=== PATIENT | male | born 1965 | race Caucasian/White ===

== ENCOUNTER 2024-07-06 03:30 | Inpatient (IN) | payer OTHER, SELFPAY ==
[2024-07-05 22:56] VITALS: BP 110/74
--- NOTE | 2024-07-05 23:09 | ED.GENMED ---
History of Present Illness
<JORGE Watts - Last Filed: 07/06/24 05:52>
General
Chief Complaint: Chest Pain
Time Seen by Provider: 07/05/24 23:09
History of Present Illness
History of Present Illness:
Patient is a 59 year old male with a PMH of HTN presenting to the ED with complaints of chest pain x 1 day. Patient states he woke up with chest pain that was consistent throughout the day, but worsened around 900pm when he was at work standing. The
chest pain got worse and he also got dizzy and short of breath. The chest pain was described as sharp and rated a 7/10 on a pain scale. Patient states the pain is better with rest and worse with exertion. The pain does not radiate anywhere and is
located on the left side of the chest. This has never happened before. He also reports he had a URI 2 weeks ago and still has a cough and sore throat. The cough is minimally productive with no blood. Patient denies any palpitations fever abdominal
pain.
Patient has a PMH of HTN HLD DM which is all controlled on medication. He states he went to a cellular biologist 12 years ago because his brother of heart disease and had all normal tests. He chews tobacco and admits to occasional alcohol use.
Review of Systems
<JORGE Watts - Last Filed: 07/06/24 05:52>
Review of Systems
Constitutional: Reports no symptoms
EENT: Reports sore throat
Respiratory: Reports cough
Cardiac: Reports chest pain
ABD/GI: Reports no symptoms
: Reports no symptoms
Neurological: Reports dizzy
Phy Exam
<JORGE Watts - Last Filed: 07/06/24 05:52>
Physical Exam
Physical Exam:
see physical
ENT Exam
ENT Exam: pharynx normal
Cardiovascular Exam
Cardiovascular Exam: no edema, no gallop, no JVD, no murmur and tachycardia
Pulmonary Exam
Pulmonary Exam: lungs clear, no respiratory distress, no rales, chest non tender, no crackles, no rhonchi, no wheezing and decreased breath sounds
Scores
<JORGE Watts - Last Filed: 07/06/24 05:52>
Heart Score for Chest Pain Patients
STEMI patient?: No
History: Moderately Suspicious
ECG: Normal
Age: >45 - <65 years
Risk Factors: >/= 3 Risk Factors or History of CAD
Troponin: >/= 3 x Normal Limit
Heart Score for Chest Pain Patients: 6
Heart Score Risk: 20.3% MACE over next 6 weeks
Course
<Manuel Morales [facility] - Last Filed: 07/06/24 05:52>
Orders/Labs/Results
Orders:
Orders
07/05/24 22:48
ECG [Electrocardiogram (*1)] Urgent
Reason for Study: Chest Pain
07/05/24 22:49
EKG- Treatment ONCE
07/05/24 23:08
Cardiac Monitoring- Treatment ONCE
EKG- Treatment ONCE
IV Insert/Care/Rem.- Treatment PRN
CR Chest - 2 Views Urgent
Comment:
Reason For Exam: respiratory distress
07/05/24 23:38
Complete Blood Count/With Diff Urgent
Comprehensive Metabolic Panel Urgent
Troponin I Urgent
07/06/24 00:27
Aspirin 325 mg PO NOW STA
Heparin 4,000 units IV NOW STA
07/06/24 00:30
Heparin 25434 Units/250 ml 25,000 units in 250 ml IV PER PROTOCOL
Weight to be used for heparin protocol in kilograms (kg):: 104
Protocol:: Cardiac Tx/Acute Coronary
PTT Goal Range to be used:: PTT 73 to 111 seconds
Order type:: Initial
INITIAL Infusion Dose (UNITS/KG/hr) & then follow protocol:: 15 units/kg/hr
Infusion Dose in UNITS/hr & then follow protocol (UNITS/hr):: 1,500
INFUSION RATE in mL/hr & then follow protocol (mL/hr):: 15
PTT less than or equal to 64 seconds:: Increase rate by 200 units/hr (+ 2 mL/hr)
PTT 64.1 to 72.9 seconds:: Increase rate by 100 units/hr (+ 1 mL/hr)
PTT 73 to 111 seconds:: Target Range. No change in rate.
PTT 111.1 to 130.9 seconds:: Decrease rate by 100 units/hr (- 1 mL/hr)
PTT 131 to 199.9 seconds:: HOLD for 1 hr. Then decrease rate by 200 units/hr (- 2 mL/hr)
PTT greater than or equal to 200 seconds:: HOLD for 2 hrs & Notify Provider. Then decrease by 200 units/hr (-
2 mL/hr)
Lab follow-up:: Each change, PTT q6h until 2 consecutive are therapeutic. Then PTT
daily.
07/06/24 00:32
Heparin 08049 Units/250 ml 25,000 units in 250 ml .ROUTE .STK-MED
07/06/24 00:35
Azithromycin 500 mg/250 ml [Zithromax Infusion] 500 mg in 250 ml IV NOW
CefTRIAXone [Rocephin] 1,000 mg IV NOW STA
07/06/24 00:48
NT-proBNP Urgent
PTT Urgent
Comment: Obtain baseline before beginning heparin infusion if not already collected
07/06/24 01:00
Flush (0.9% Sodium Chloride) [Flush (Nss)] See Dose Instructions IV PER PROTOCOL
07/06/24 01:19
B-Hydroxybutyrate Routine
Lactic Acid Routine
Venous Blood Gas Routine
07/06/24 03:01
Troponin I Urgent
07/06/24 03:10
Admit/Transfer Patient As Directed
Co-Sign Provider:
Level of Care: Inpatient admission
Assign to:: ICU
Physician / Group: Hospitalist
Diagnosis: NSTEMI, DKA
Reason for Hospitalization: NSTEMI
Expected length of stay greater than two midnights?: Yes
ELOS- Estimated Length of Stay in days: 2
I certify the patient meets the requirements for IP care: Yes
PRN Pain Medication Management As Directed
May give lesser potent ordered pain med per pt: Yes
preference::
Protocol:: Medication orders for pain may be administered in a
manner that supports deferring to patient preference
when the pt is:
- Requesting an ordered lesser potent pain medication.
Least to most potent pain medications are defined
as: acetaminophen < NSAID < tramadol < opioids
(morphine, oxycodone, hydromorphone).
- Requesting a lesser dose of the same medication IF
ORDERED.
- Requesting a less intrusive route of administration
if both routes are prescribed by the provider (PO <
IV).
07/06/24 03:11
Code Status As Directed
Resuscitation Status: Full Code
Reg Insulin 100 Units/100 ml [Novolin R Insulin Infusion] 100 units in 100 ml IV NOW
07/06/24 03:32
Ipratropium/Albuterol Sulfate [Duoneb] 3 ml INH R Q4HPRN PRN
Reg Insulin 100 Units/100 ml [Novolin R Insulin Infusion] 100 units in 100 ml IV PER PROTOCOL
Currently infusing. Continue current dose and titrate:: Yes
07/06/24 03:32
Echo 2D MMode Color/Doppler Routine
Reason for Study: chest pain
CARDIOLOGY CONSULT Routine
Consulting Provider: Axel Adkins
Was physician already notified: Yes
Reason for consult: NSTEMI
Consult Notification Routine
Specialty to Notify: Hog Sticker
Hog Sticker Consult Routine
Consulting Provider: Leodan Lu
Was physician already notified: No
Reason for consult: DKA
VTE Contraindication Routine
VTE Mechanical Device Contraindication: Medical Contraindication
Pharmocologic Contraindication: Medical Contraindication
Heparin Protocol- PTT Orders As Directed
PTT per Heparin protocol: -Obtain CBC and baseline PTT - if not already collected.
-Obtain PTT 6 hours from start of infusion. Then, every 6 hours until 2 consecutive
PTT's are therapeutic. Then, PTT Daily.
-With each rate change, obtain PTT every 6 hours until 2 consecutive PTT's are
therapeutic. Then, PTT Daily.
Activity As Directed
Activity Level: With Assistance
Bedside Glucose Monitoring As Directed
Frequency: Q1H
INT (Intravenous Needle Therapy) As Directed
Comment: maintain peripheral IV access
Intake/ Output As Directed
Frequency: Per unit guidelines
Notify MD As Directed
Notify physician if: PTT is greater than or equal to 200.
Vital Signs As Directed
Frequency: q4h
Weight As Directed
Frequency: Daily
O2 Therapy [RESP] Routine
Nasal Cannula Liter Flow: 2 LPM
Titrate/Wean O2 to maintain O2 sat greater than (%): 90
Special Instructions: 2 liters/minute as needed for pulse oximetry less than 90%
Pulse Ox/spot Check [RESP] Routine
Quantity: 1
Special Instructions: on admission and then every shift if on oxygen
07/06/24 04:00
KCl 20 Meq/D5.45%Sodchl 1000ML [D5/0.45%NSS with KCL 20 MEQ] 20 meq in 1,000 ml IV 75 mls/hr
07/06/24 04:09
Basic Metabolic Panel Q4H
Cardiovascular Evaluation IN AM
Complete Blood Count/No Diff IN AM
Glycohemoglobin (HgbA1c) IN AM
Procalcitonin IN AM
PCT Algorithmm Indication: Respiratory
Troponin I Q6H
Comment: at admit & Q3H for 3 total including ED draws, obtain ECG with each level
07/06/24 06:00
Electrocardiogram (*1) Q6H
Reason for Study: Chest Pain
Comment: at admission and Q3H for total of 3, to be done with each troponin
NPO
Allow oral meds: Yes
Allow clear liquids: Sips of Clears
07/06/24 08:00
Aspirin Chewable [Low Strength Aspirin] 81 mg PO DAILY
Famotidine [Pepcid] 20 mg PO DAILY
Pantoprazole [Protonix] 40 mg PO DAILY
07/06/24 10:00
Basic Metabolic Panel Q4H
07/06/24 12:00
Electrocardiogram (*1) Q6H
Reason for Study: Chest Pain
Comment: at admission and Q3H for total of 3, to be done with each troponin
Troponin I Q6H
Comment: at admit & Q3H for 3 total including ED draws, obtain ECG with each level
07/06/24 14:00
Basic Metabolic Panel Q4H
07/06/24 18:00
Basic Metabolic Panel Q4H
Atorvastatin [Lipitor] 80 mg PO QPM
07/07/24 00:00
Azithromycin 500 mg/250 ml [Zithromax Infusion] 500 mg in 250 ml IV Q24H
CefTRIAXone [Rocephin] 1,000 mg IV Q24H
07/08/24 06:00
Complete Blood Count/No Diff Q2D
Comment: notify provider: Platelet count < 130,000 or decrease by 50% from baseline
07/10/24 06:00
Complete Blood Count/No Diff Q2D
Comment: notify provider: Platelet count < 130,000 or decrease by 50% from baseline
07/12/24 06:00
Complete Blood Count/No Diff Q2D
Comment: notify provider: Platelet count < 130,000 or decrease by 50% from baseline
07/14/24 06:00
Complete Blood Count/No Diff Q2D
Comment: notify provider: Platelet count < 130,000 or decrease by 50% from baseline
07/16/24 06:00
Complete Blood Count/No Diff Q2D
Comment: notify provider: Platelet count < 130,000 or decrease by 50% from baseline
07/18/24 06:00
Complete Blood Count/No Diff Q2D
Comment: notify provider: Platelet count < 130,000 or decrease by 50% from baseline
07/20/24 06:00
Complete Blood Count/No Diff Q2D
Comment: notify provider: Platelet count < 130,000 or decrease by 50% from baseline
07/22/24 06:00
Complete Blood Count/No Diff Q2D
Comment: notify provider: Platelet count < 130,000 or decrease by 50% from baseline
Abnormal Lab Results
07/05/24 07/06/24 07/06/24
23:38 00:48 01:19
WBC 17.6 H 10^3/uL
(4.8-10.8)
Abs Immat Gran (auto) 0.1 H 10^3/uL
(0-0.05)
Absolute Neuts (auto) 13.8 H 10^3/uL
(1.4-6.5)
Absolute Monos (auto) 1.6 H 10^3/uL
(0.1-0.6)
Neutrophils % 78.6 H %
(42.2-75.2)
Lymphocytes % 11.1 L %
(20.5-51.1)
APTT > 200.0 H* Sec
(23.4-35.0)
VBG pCO2 29 L mmHg
(35-48)
VBG pO2 129 H mmHg
(30-50)
VBG HCO3 15.3 L mmol/L
(22-27)
Carbon Dioxide 12 L* mmol/L
(22-30)
BUN 21 H mg/dl
(9-20)
Glucose 158 H mg/dl
(70-99)
Total Bilirubin 1.6 H mg/dl
(0.2-1.3)
AST 100 H U/L
(17-59)
Troponin I 13.600 H* ng/ml
B-Hydroxybutyrate 4.63 H mmol/L
(0.02-0.27)
07/06/24
03:01
WBC
Abs Immat Gran (auto)
Absolute Neuts (auto)
Absolute Monos (auto)
Neutrophils %
Lymphocytes %
APTT
VBG pCO2
VBG pO2
VBG HCO3
Carbon Dioxide
BUN
Glucose
Total Bilirubin
AST
Troponin I 11.900 H* ng/ml
B-Hydroxybutyrate
07/05/24 23:38
07/05/24 23:38
Vital Signs
Initial and Last Documented VS:
Initial Vital Signs
Temp Pulse Resp BP Pulse Ox
98.4 F 110 26 110/74 96
07/05/24 22:56 07/05/24 22:56 07/05/24 22:56 07/05/24 22:56 07/05/24 22:56
Last Documented Vital Signs
Temp Pulse Resp BP Pulse Ox
98.8 F 91 15 108/73 94
07/06/24 04:36 07/06/24 03:30 07/06/24 03:30 07/06/24 03:00 07/06/24 04:36
<Axel Aguilar, DO - Last Filed: 07/06/24 00:37>
Orders/Labs/Results
Orders:
Orders
07/05/24 22:48
ECG [Electrocardiogram (*1)] Urgent
Reason for Study: Chest Pain
07/05/24 22:49
EKG- Treatment ONCE
07/05/24 23:08
Cardiac Monitoring- Treatment ONCE
EKG- Treatment ONCE
IV Insert/Care/Rem.- Treatment PRN
CR Chest - 2 Views Urgent
Comment:
Reason For Exam: respiratory distress
07/05/24 23:38
Complete Blood Count/With Diff Urgent
Comprehensive Metabolic Panel Urgent
Troponin I Urgent
07/06/24 00:27
Aspirin 325 mg PO NOW STA
Heparin 4,000 units IV NOW STA
07/06/24 00:30
Heparin 70073 Units/250 ml 25,000 units in 250 ml IV PER PROTOCOL
Weight to be used for heparin protocol in kilograms (kg):: 104
Protocol:: Cardiac Tx/Acute Coronary
PTT Goal Range to be used:: PTT 73 to 111 seconds
Order type:: Initial
INITIAL Infusion Dose (UNITS/KG/hr) & then follow protocol:: 15 units/kg/hr
Infusion Dose in UNITS/hr & then follow protocol (UNITS/hr):: 1,500
INFUSION RATE in mL/hr & then follow protocol (mL/hr):: 15
PTT less than or equal to 64 seconds:: Increase rate by 200 units/hr (+ 2 mL/hr)
PTT 64.1 to 72.9 seconds:: Increase rate by 100 units/hr (+ 1 mL/hr)
PTT 73 to 111 seconds:: Target Range. No change in rate.
PTT 111.1 to 130.9 seconds:: Decrease rate by 100 units/hr (- 1 mL/hr)
PTT 131 to 199.9 seconds:: HOLD for 1 hr. Then decrease rate by 200 units/hr (- 2 mL/hr)
PTT greater than or equal to 200 seconds:: HOLD for 2 hrs & Notify Provider. Then decrease by 200 units/hr (-
2 mL/hr)
Lab follow-up:: Each change, PTT q6h until 2 consecutive are therapeutic. Then PTT
daily.
07/06/24 00:32
Heparin 31139 Units/250 ml 25,000 units in 250 ml .ROUTE .STK-MED
07/06/24 00:35
Azithromycin 500 mg/250 ml [Zithromax Infusion] 500 mg in 250 ml IV NOW
CefTRIAXone [Rocephin] 1,000 mg IV NOW STA
07/06/24 00:48
NT-proBNP Urgent
PTT Urgent
Comment: Obtain baseline before beginning heparin infusion if not already collected
07/06/24 01:00
Flush (0.9% Sodium Chloride) [Flush (Nss)] See Dose Instructions IV PER PROTOCOL
07/06/24 01:19
B-Hydroxybutyrate Routine
Lactic Acid Routine
Venous Blood Gas Routine
07/06/24 03:01
Troponin I Urgent
07/06/24 03:10
Admit/Transfer Patient As Directed
Co-Sign Provider:
Level of Care: Inpatient admission
Assign to:: ICU
Physician / Group: Hospitalist
Diagnosis: NSTEMI, DKA
Reason for Hospitalization: NSTEMI
Expected length of stay greater than two midnights?: Yes
ELOS- Estimated Length of Stay in days: 2
I certify the patient meets the requirements for IP care: Yes
PRN Pain Medication Management As Directed
May give lesser potent ordered pain med per pt: Yes
preference::
Protocol:: Medication orders for pain may be administered in a
manner that supports deferring to patient preference
when the pt is:
- Requesting an ordered lesser potent pain medication.
Least to most potent pain medications are defined
as: acetaminophen < NSAID < tramadol < opioids
(morphine, oxycodone, hydromorphone).
- Requesting a lesser dose of the same medication IF
ORDERED.
- Requesting a less intrusive route of administration
if both routes are prescribed by the provider (PO <
IV).
07/06/24 03:11
Code Status As Directed
Resuscitation Status: Full Code
Reg Insulin 100 Units/100 ml [Novolin R Insulin Infusion] 100 units in 100 ml IV NOW
07/06/24 03:32
Ipratropium/Albuterol Sulfate [Duoneb] 3 ml INH R Q4HPRN PRN
Reg Insulin 100 Units/100 ml [Novolin R Insulin Infusion] 100 units in 100 ml IV PER PROTOCOL
Currently infusing. Continue current dose and titrate:: Yes
07/06/24 03:32
Echo 2D MMode Color/Doppler Routine
Reason for Study: chest pain
CARDIOLOGY CONSULT Routine
Consulting Provider: Axel Adkins
Was physician already notified: Yes
Reason for consult: NSTEMI
Consult Notification Routine
Specialty to Notify: Hog Sticker
Hog Sticker Consult Routine
Consulting Provider: Leodan Lu
Was physician already notified: No
Reason for consult: DKA
VTE Contraindication Routine
VTE Mechanical Device Contraindication: Medical Contraindication
Pharmocologic Contraindication: Medical Contraindication
Heparin Protocol- PTT Orders As Directed
PTT per Heparin protocol: -Obtain CBC and baseline PTT - if not already collected.
-Obtain PTT 6 hours from start of infusion. Then, every 6 hours until 2 consecutive
PTT's are therapeutic. Then, PTT Daily.
-With each rate change, obtain PTT every 6 hours until 2 consecutive PTT's are
therapeutic. Then, PTT Daily.
Activity As Directed
Activity Level: With Assistance
Bedside Glucose Monitoring As Directed
Frequency: Q1H
INT (Intravenous Needle Therapy) As Directed
Comment: maintain peripheral IV access
Intake/ Output As Directed
Frequency: Per unit guidelines
Notify MD As Directed
Notify physician if: PTT is greater than or equal to 200.
Vital Signs As Directed
Frequency: q4h
Weight As Directed
Frequency: Daily
O2 Therapy [RESP] Routine
Nasal Cannula Liter Flow: 2 LPM
Titrate/Wean O2 to maintain O2 sat greater than (%): 90
Special Instructions: 2 liters/minute as needed for pulse oximetry less than 90%
Pulse Ox/spot Check [RESP] Routine
Quantity: 1
Special Instructions: on admission and then every shift if on oxygen
07/06/24 04:00
KCl 20 Meq/D5.45%Sodchl 1000ML [D5/0.45%NSS with KCL 20 MEQ] 20 meq in 1,000 ml IV 75 mls/hr
07/06/24 04:09
Basic Metabolic Panel Q4H
Cardiovascular Evaluation IN AM
Complete Blood Count/No Diff IN AM
Glycohemoglobin (HgbA1c) IN AM
Procalcitonin IN AM
PCT Algorithmm Indication: Respiratory
Troponin I Q6H
Comment: at admit & Q3H for 3 total including ED draws, obtain ECG with each level
07/06/24 06:00
Electrocardiogram (*1) Q6H
Reason for Study: Chest Pain
Comment: at admission and Q3H for total of 3, to be done with each troponin
NPO
Allow oral meds: Yes
Allow clear liquids: Sips of Clears
07/06/24 08:00
Aspirin Chewable [Low Strength Aspirin] 81 mg PO DAILY
Famotidine [Pepcid] 20 mg PO DAILY
Pantoprazole [Protonix] 40 mg PO DAILY
07/06/24 10:00
Basic Metabolic Panel Q4H
07/06/24 12:00
Electrocardiogram (*1) Q6H
Reason for Study: Chest Pain
Comment: at admission and Q3H for total of 3, to be done with each troponin
Troponin I Q6H
Comment: at admit & Q3H for 3 total including ED draws, obtain ECG with each level
07/06/24 14:00
Basic Metabolic Panel Q4H
07/06/24 18:00
Basic Metabolic Panel Q4H
Atorvastatin [Lipitor] 80 mg PO QPM
07/07/24 00:00
Azithromycin 500 mg/250 ml [Zithromax Infusion] 500 mg in 250 ml IV Q24H
CefTRIAXone [Rocephin] 1,000 mg IV Q24H
07/08/24 06:00
Complete Blood Count/No Diff Q2D
Comment: notify provider: Platelet count < 130,000 or decrease by 50% from baseline
07/10/24 06:00
Complete Blood Count/No Diff Q2D
Comment: notify provider: Platelet count < 130,000 or decrease by 50% from baseline
07/12/24 06:00
Complete Blood Count/No Diff Q2D
Comment: notify provider: Platelet count < 130,000 or decrease by 50% from baseline
07/14/24 06:00
Complete Blood Count/No Diff Q2D
Comment: notify provider: Platelet count < 130,000 or decrease by 50% from baseline
07/16/24 06:00
Complete Blood Count/No Diff Q2D
Comment: notify provider: Platelet count < 130,000 or decrease by 50% from baseline
07/18/24 06:00
Complete Blood Count/No Diff Q2D
Comment: notify provider: Platelet count < 130,000 or decrease by 50% from baseline
07/20/24 06:00
Complete Blood Count/No Diff Q2D
Comment: notify provider: Platelet count < 130,000 or decrease by 50% from baseline
07/22/24 06:00
Complete Blood Count/No Diff Q2D
Comment: notify provider: Platelet count < 130,000 or decrease by 50% from baseline
Abnormal Lab Results
07/05/24 07/06/24 07/06/24
23:38 00:48 01:19
WBC 17.6 H 10^3/uL
(4.8-10.8)
Abs Immat Gran (auto) 0.1 H 10^3/uL
(0-0.05)
Absolute Neuts (auto) 13.8 H 10^3/uL
(1.4-6.5)
Absolute Monos (auto) 1.6 H 10^3/uL
(0.1-0.6)
Neutrophils % 78.6 H %
(42.2-75.2)
Lymphocytes % 11.1 L %
(20.5-51.1)
APTT > 200.0 H* Sec
(23.4-35.0)
VBG pCO2 29 L mmHg
(35-48)
VBG pO2 129 H mmHg
(30-50)
VBG HCO3 15.3 L mmol/L
(22-27)
Carbon Dioxide 12 L* mmol/L
(22-30)
BUN 21 H mg/dl
(9-20)
Glucose 158 H mg/dl
(70-99)
Total Bilirubin 1.6 H mg/dl
(0.2-1.3)
AST 100 H U/L
(17-59)
Troponin I 13.600 H* ng/ml
B-Hydroxybutyrate 4.63 H mmol/L
(0.02-0.27)
07/06/24
03:01
WBC
Abs Immat Gran (auto)
Absolute Neuts (auto)
Absolute Monos (auto)
Neutrophils %
Lymphocytes %
APTT
VBG pCO2
VBG pO2
VBG HCO3
Carbon Dioxide
BUN
Glucose
Total Bilirubin
AST
Troponin I 11.900 H* ng/ml
B-Hydroxybutyrate
07/05/24 23:38
07/05/24 23:38
Vital Signs
Initial and Last Documented VS:
Initial Vital Signs
Temp Pulse Resp BP Pulse Ox
98.4 F 110 26 110/74 96
07/05/24 22:56 07/05/24 22:56 07/05/24 22:56 07/05/24 22:56 07/05/24 22:56
Last Documented Vital Signs
Temp Pulse Resp BP Pulse Ox
98.8 F 91 15 108/73 94
07/06/24 04:36 07/06/24 03:30 07/06/24 03:30 07/06/24 03:00 07/06/24 04:36
<JORGE Watts - Last Filed: 07/06/24 05:52>
MDM/Problems Addressed
Differential Diagnosis Includes:
PNA stable angina, unstable angina, CAD
MDM/Problems Addressed:
order EKG cardiac enzymes and blood work, give meds for pain 12:32 update troponins came back 13.6 give aspirin heparin and work up for PNA
<JORGE Watts - Last Filed: 07/06/24 05:52>
*Critical Care Note
Total Time (30-74mins, 75-104mins- exclusive of procedures): Not Applicable
ED Attending Note
<JORGE aWtts - Last Filed: 07/06/24 05:52>
-
Portions of this chart may have been created with voice recognition software.� Occasional wrong word or��sound alike� substitutions may have occurred due to the inherent limitations of voice recognition software.
<Axel Aguilar DO - Last Filed: 07/06/24 00:37>
ED Attending Note
Patient seen and examined by attending physician: Yes
I performed the substantive portion of visit, reviewed & personally made and approve the management plan that is documented in note by myself or SOL.: Yes
ED Attending Note:
This a pleasant 59-year-old male who has been having intermittent chest pain for the last week. Patient dates that his chest pain is worse with exertion. At rest the pain resolves. Tonight he was getting ready to go to work and felt the chest
pain worse that he had not been experiencing. Patient reports that the pain is located on the left side of his chest and denies radiation. Patient does report some shortness of breath. He states that when the chest pain is at its worst, the
shortness of breath worsens. Tonight he became diaphoretic so he came into the emergency department. Patient was seen in conjunction with the PA student. I have reviewed and agree with the history and treatment plan presented. On my independent
physical exam, patient is awake, alert, and oriented x3, in minimal to no acute distress. Initially he was diaphoretic but that has resolved. Patient reports no chest pain. He does have coarse breath sounds bilaterally.
Vital signs are stable. Patient not hypoxic
Nursing note reviewed. I agree with nursing documentation up to this point in time.
Home Meds and allergies reviewed.
NUMBER AND COMPLEXITY OF PROBLEMS ADDRESSED AT THE ENCOUNTER
� Chronic conditions affecting care: Hypertension, hyperlipidemia, type 2 diabetes
� Acute Exacerbation and/or Progression of Chronic Illness:
� Differential Diagnosis includes: ACS, pneumonia, unstable angina
AMOUNT AND/OR COMPLEXITY OF DATA TO BE REVIEWED AND ANALYZED
I performed an independent evaluation of the following and my interpretation is:
EKG: EKG shows normal sinus rhythm rate of 94 with normal intervals, normal axis. No evidence of acute ischemia. No previous EKGs available.
CT:
X-rays: Possible left retrocardiac pneumonia present.
Ultrasound:
Laboratory Studies: Troponin of 13.600., White blood cell count of 17.6, bicarb of 12, T. bili 1.6
Other:
Review of other/old records: No previous records.
Clinical information was obtained by an independent historian:
Prescriptions/Medications Considered but not given:
Further testing considered but not performed:
RISK OF COMPLICATIONS AND/OR MORBIDITY OR MORTALITY OF PATIENT MANAGEMENT
Social determinants of health affecting care: Good Social Support
Discussion with other providers: Spoke with Dr. Adkins, cardiology. He recommended heparin, aspirin, and admission to the hospital service. Spoke with hospitalist who agrees.
Escalation of care including admission/observation vs risk of discharge considered: Patient to be admitted for further observation to determine the etiology of his chest pain.
CRITICAL CARE NOTE:
Critical care statement: A total of 35 minutes of critical care time was provided for this patient. This time is separate from time utilized to perform the aforementioned documented procedures. Aggregate critical care time includes only time
during which I was engaged in work directly related to the patient's care, as described above, whether at the bedside or elsewhere in the Emergency Department.
Total Time (exclusive of procedures):35
Update:
Discharge Plan
Departure
Patient Disposition: Admit
Date of Disposition: 07/06/24
Time of Disposition: 00:36
Admit to: IVU
Presentation/result/management discussed w/ accepting MD/DO: Hospitalist
Condition: Fair
Discharge Problem:
Non-ST elevated myocardial infarction (non-STEMI), Left-sided pneumonia, Acute coronary syndrome
Interventions
Interventions:
*Risk Screen - Suicide Last Done: 07/05/24 22:56
*Neglect/Abuse Screening Last Done: 07/05/24 22:56
ED- Fall Risk Assessment Last Done: 07/05/24 23:53
*ED COVID-19 Vaccine History Last Done: 07/06/24 03:46
*Nursing Disposition Last Done: 07/06/24 03:32
ED- Cardiac Assessment Last Done: 07/05/24 23:53
ED- Pulmonary Assessment Last Done: 07/05/24 23:53
Discharge Date and Time
Discharge Date/Time: 07/06/24 03:33
[2024-07-05 23:32] VITALS: BP 112/78
[2024-07-05 23:45] LABS: % Basophils 0.6 % (0-2); % Eosinophils 0.1 % (0-6); % Immature Granulocytes 0.4 % (0-0.5); % Lymphocytes 11.1 % (20.5-51.1); % Monocytes 9.2 % (1.7-9.3); % Neutrophils 78.6 % (42.2-75.2); Absolute Basophils 0.1 10^3/uL (0-0.2); Absolute Immature Granulocytes 0.1 10^3/uL (0-0.05); Absolute Monocytes 1.6 10^3/uL (0.1-0.6); Absolute Neutrophils 13.8 10^3/uL (1.4-6.5); Hematocrit 48.3 % (39.0-52.0); Hemoglobin 16.3 g/dL (13.0-18.0); Mean Corp Hgb Conc. 33.7 g/dL (33.0-37.0); Mean Corpuscular Hgb 29.4 pg (27.0-31.0); Mean Corpuscular Volume 87.2 fL (80.0-94.0); Mean Platelet Volume 9.7 fL (7.4-10.4); Nucleated Red Blood Cells % 0 % (-); Platelet Count 292 10^3/uL (130-400); Red Blood Cell Count 5.54 10^6/uL (4.70-6.10); Red Cell Dist. Width 13.2 % (11.5-14.5); White Blood Cell Count 17.6 10^3/uL (4.8-10.8)
[2024-07-05 23:52] VITALS: BMI 29.5
[2024-07-06] VITALS (55 sets, daily range): BP systolic 91–142; BP diastolic 54–90; BMI 29.0
[2024-07-06 00:07] LABS: ALT (SGPT) 39 U/L (0-50); AST (SGOT) 100 U/L (17-59); Albumin 4.4 g/dl (3.5-5.0); Alkaline Phosphatase 101 U/L (38-126); Blood Urea Nitrogen 21 mg/dl (9-20); Calcium 9.4 mg/dl (8.4-10.2); Carbon Dioxide 12 mmol/L (22-30); Chloride 101 mmol/L (98-107); Estimated Creatinine Clearance 70 ml/min; Glucose 158 mg/dl (70-99); Potassium 4.2 mmol/L (3.5-5.1); Sodium 139 mmol/L (135-145); Total Bilirubin 1.6 mg/dl (0.2-1.3); Total Protein 7.4 g/dl (6.3-8.2); eGFR > 60.00
[2024-07-06] MEDS: ASPIRIN 325 MG PO (00:30)
[2024-07-06] MEDS: HEPARIN 4000 UNITS IV (00:32)
--- NOTE | 2024-07-06 00:33 | HPS.HSE ---
Family Physician
-
Family Physician: aVzquez Goodwin
Chief Complaint
-
Cough chest pain and shortness of breath
History of Present Illness
Disease disease 59-year-old male with past medical history significant for diabetes hyperlipidemia and hypertension and GERD presenting to the emergency department with approximately 1 day of chest pain and worsening dyspnea on exertion after
approximately 1 week of a cough.
Patient reported that 1 week ago started having cough and phlegm symptoms. His initially had symptoms first. She had a symptoms improved. However the patient has continued to have nonproductive cough and mild shortness of breath at home. He
denied having any fevers. He was tolerating the symptoms up until Thursday evening. He did not get checked for COVID. Thursday when he went to walk he noticed that he had a left-sided chest pain that he described as sharp 8 out of 10 pain.
It was nagging him. There was no radiation. There was no nausea or vomiting. However at work he found that he could not do anything due to the pain. He said the pain has been essentially persistent although it seems to have waxed and waned but
never completely resolving. He denies any nausea or vomiting. Pain is currently a dull ache and without any radiation. It is not particularly worsened with cough or deep inspiration. He denies any lower extremity swelling or calf tenderness.
On arrival in the Emergency Department he was afebrile, blood pressure was 108/72 oxygen saturation was low 90s on room air. ECG showed a normal sinus rhythm without any ST or T wave changes. Troponin was 13. ECG with a possible left retrocardiac
opacity. CBC notable for white count of 17,000 with hemoglobin of 16 and a normal platelet count. Chemistries notable for a bicarb of 12 and a creatinine of 1.3 with a glucose of 158. AST 100.
Medical History
Past Medical History
Past Medical History: Reports GERD, HTN, Hypercholesterolemia and NIDDM
Past Surgical History: Reports Bowel Resection and Orthopedic (Cervical disc replacement)
Social History
Tobacco: Non-smoker
Alcohol: Occasional
Drug: Former User
Personal:
Living: With Family
Employment: Employed
Family History
Family History: Cancer and Sudden (Brother at a young age)
Allergies / Home Medications
Allergies reflects when Allergies were last updated in [employer].
Home Medications with original date entered in [employer]
Allergy/Medication List:
Allergies
Allergy/AdvReac Type Severity Reaction Status Date / Time
No Known Allergies Allergy Verified 07/05/24 22:59
Losartan 100 mg po daily
Amlodipine 10mg po daily
Atorvastatin 80 mg po daily
Famotidine 20mg po daily
Review of Systems
-
History Source: Patient
Constitutional: Reports No Symptoms
EENT: Reports No Symptoms
Respiratory: Reports Cough
Cardiac: Reports Chest Pain
Abdomen/GI: Reports No Symptoms
: Reports No Symptoms
Musculoskeletal: Reports No Symptoms
Skin: Reports No Symptoms
Neurological: Reports No Symptoms
Endocrine: Reports No Symptoms
Hematologic/Lymphatic: Reports No Symptoms
Psych: Reports No Symptoms
Physical Exam
Vital Signs
Vital Signs
Temp Pulse Resp BP Pulse Ox
98.4 F 80 22 108/72 92
07/05/24 22:56 07/06/24 00:00 07/06/24 00:00 07/06/24 00:00 07/06/24 00:00
Physical Exam
General: Well Developed, Well Nourished and Comfortable
HEENT: NormoCephalic, Anicteric, Moist mucous membranes and Atraumatic
Respiratory: Clear
Cardiac: S1/S2 and Regular Rhythm
Breast: Deferred by me
GI: Soft, Non Tender, Non Distended and Normal Bowel Sounds
Rectal: Deferred by Provider
Genito-urinary: Deferred by me
Musculoskeletal: No Clubbing, No Cyanosis and No Edema
Skin: Warm
Neuro: AO x 3 and Nonfocal/grossly intact
Psych: Calm
Laboratory Results
-
07/05/24 23:38
07/05/24 23:38
Laboratory Results
Total Bilirubin 1.6 mg/dl (0.2-1.3) H 07/05/24 23:38
AST 100 U/L (17-59) H 07/05/24 23:38
ALT 39 U/L (0-50) 07/05/24 23:38
Alkaline Phosphatase 101 U/L (38-126) 07/05/24 23:38
Troponin I 13.600 ng/ml H* 07/05/24 23:38
Data Reviewed
-
Diagnostic Radiology: Image Personally Visualized and interpreted
Medical Tests (Nuc Med, Echo, EKG etc): Image Personally Visualized and interpreted
Lab Data: Labs Reviewed by me
Old Records: Reviewed
Impression/Plan
-
IMPRESSION:
59-year-old male with no prior history of coronary artery disease, well with past medical history of diabetes hypertension and hyperlipidemia presents to the emergency department with approximately 1 day of persistent left-sided chest pain that is
nonradiating and not associated with nausea diaphoresis but in the setting of approximately 1 week of upper respiratory cough like illness without fevers or chills. Slightly hypoxic in the emergency department without any significant infiltrates
but possibly a right lower lobe opacity. Ultimately before found to have a elevated troponin of 13. After ischemia on ECG. He is hemodynamically stable. Chest pain is minimal at this time
PLAN:
1. ACS -patient with non-ST elevation ND. Troponin 13. Risk factors include age diabetes hypertension and hyperlipidemia as well as a family history. Patient had a cardiac evaluation 10 years ago without any abnormality. He had a recent upper
respiratory infection and possibly a pneumonia. Suspect possibly completed ND as his pain was more severe yesterday remained persistent with dyspnea on exertion and that is why he came in.
- admit to telemetry
- aspirin 324, heparin bolus and gtt
- atorvastatin 80
- ntg prn chest pain with ECG
- echo in am
- check bnp and cardiovascular testing.
- npo
- cardiology consultation
2. Pneumonia - Cough, mild hypoxia. No fevers. Leukocytosis to 17. Prior URI. Xray is mostly clear but a RLL opacity can't be fully excluded.
- keep SaO2 >95
- ceftriaxone and azithromycin
- check procalcitonin in am for continuation
- prn nebs
3. Anion gap acidosis - Patient with high anion gap. Glucose normal. Possibly non-hyperglycemic ketoacidosis. bHB elevated. Lactate normal. Mild DKA 2/2 ND or infection. Gluc < 200
- given ND
- iv fluids given in ED.
4. DM II (on metformin, jardiance)
- hold metformin and sgltII inh for now
- insulin sliding scale for now
- dka eval as above
5. HTN
- continue losartan and amlodipine
DVT PPX - on heparin
Code status - full code
[2024-07-06] MEDS: HEPARIN 25000 UNITS/250 ML IV (00:34)
[2024-07-06] MEDS: ZITHROMAX INFUSION 250 IV (00:39)
[2024-07-06] MEDS: ROCEPHIN 1000 MG IV (00:39)
[2024-07-06] MEDS: FLUSH (NSS) 1 FLUSH IV (00:41)
[2024-07-06 03:06] LABS: NT-proBNP 11400 pg/ml
--- NOTE | 2024-07-06 03:09 | DOWNTIME ---
There was a [employer] Emergency Communications Officer Downtime on 07/06/2024 from 0100 to 07/06/2024 at 0300. Downtime documentation of patient's care, including medication administrations, has been reconciled in the electronic record per guidelines. Refer to the
patient's paper chart under the miscellaneous tab to see printed paper medication records and downtime forms.
[2024-07-06 03:18] LABS: Venous Blood Gas B.E. -9.1 mmol/L (-4 to +4); Venous Blood Gas HCO3 15.3 mmol/L (22-27); Venous Blood Gas O2 Sat % 98.5 %; Venous Blood Gas pCO2 29 mmHg (35-48); Venous Blood Gas pH 7.33 (7.32-7.43); Venous Blood Gas pO2 129 mmHg (30-50)
[2024-07-06 03:25] LABS: APTT > 200.0 Sec (23.4-35.0)
[2024-07-06 03:28] LABS: B-Hydroxybutyrate 4.63 mmol/L (0.02-0.27)
[2024-07-06] MEDS: NOVOLIN R INSULIN INFUSION 100 IV (03:40)
[2024-07-06] MEDS: D5/0.45%NSS with KCL 20 MEQ 1000 IV (03:44)
[2024-07-06 03:50] LABS: Glucose - Point of Care 150 mg/dl (70-99)
--- NOTE | 2024-07-06 04:12 | PTCARENOTE ---
Pt Aox3, VSS, NSR on monitor, diaphoretic but denies Chest pain/discomfort at this time. BG 150. Heparin gtt infusing, insulin and D5 1/2NS w/ potassium started. pt skin is intact. labs sent.
[2024-07-06 04:21] LABS: Hematocrit 45.6 % (39.0-52.0); Hemoglobin 15.7 g/dL (13.0-18.0); Mean Corp Hgb Conc. 34.4 g/dL (33.0-37.0); Mean Corpuscular Hgb 29.7 pg (27.0-31.0); Mean Corpuscular Volume 86.2 fL (80.0-94.0); Mean Platelet Volume 9.5 fL (7.4-10.4); Platelet Count 264 10^3/uL (130-400); Red Blood Cell Count 5.29 10^6/uL (4.70-6.10); Red Cell Dist. Width 13.2 % (11.5-14.5); White Blood Cell Count 15.6 10^3/uL (4.8-10.8)
[2024-07-06 04:45] LABS: Procalcitonin 1.92 ng/ml (0.0-0.25)
[2024-07-06 04:46] LABS: Blood Urea Nitrogen 23 mg/dl (9-20); Calcium 8.7 mg/dl (8.4-10.2); Carbon Dioxide 12 mmol/L (22-30); Chloride 103 mmol/L (98-107); Estimated Creatinine Clearance 76 ml/min; Glucose 142 mg/dl (70-99); HDL Cholesterol 53 mg/dl; LDL Cholesterol, Calculated 48 mg/dl; Potassium 4.1 mmol/L (3.5-5.1); Sodium 137 mmol/L (135-145); Total Cholesterol 116 mg/dl (50-199); Triglyceride 79 mg/dl (10-149); Very Low Density Lipoprotein 15 mg/dl (0-30); eGFR > 60.00
[2024-07-06 05:14] LABS: Glucose - Point of Care 130 mg/dl (70-99)
[2024-07-06 06:13] LABS: APTT 61.2 Sec (23.4-35.0)
[2024-07-06 06:14] LABS: COVID-19 Antigen Negative (Negative)
[2024-07-06 06:18] LABS: Glucose - Point of Care 145 mg/dl (70-99)
[2024-07-06 07:28] LABS: Glucose - Point of Care 145 mg/dl (70-99)
--- NOTE | 2024-07-06 07:30 | PTCARENOTE ---
Assumed care of pt at 0715 following shift report. Pt asleep in bed, woken easily to name. present at bedside. Pt denies c/o CP when questioned although reports intermittent non-radiating Lt sided CP. Unable to rate/describe the intermittent
pain. Denies SOB. POx 92-94% on RA while awake. No cough- pt reports 'I could produce some phlegm if I needed to'. Insulin gtt infusing per DKA protocol, Heparin gtt infusing @ increased rate of 1700 units/hr, D51/2NSw/20 meq KCL @ 75ml/hr. Pt
remains NPO per order. Physical assessment completed as documented. Discussed plan of care w/ pt and his , multiple questions answered and education provided. Call [place] remains w/in pt reach and safe environment provided.
--- NOTE | 2024-07-06 07:39 | CON.INTV ---
Consultation
Consultation Request
Date/Time Consultation Requested: 07/06/2024-7 AM
Date/Time Consultation Performed: 07/06/2024-7:30 AM
Requesting Provider: Hospitalist
Performing Provider: Dr. Lu
Reason for Consultation: Chest pain, shortness of breath/critical care management
Medical History
-
Chief Complaint: Shortness of breath
History of Present Illness:
59-year-old male with history of hypertension, hyperlipidemia, type 2 diabetes, GERD and probable obstructive sleep apnea presented with shortness of breath and chest pain-admitted to ICU on a heparin drip for stat cardiology evaluation-rack puller
consulted for critical care management 07/06/2024. The patient currently is chest pain-free and has some mild shortness of breath at rest. He does not have any pleurisy, chest congestion is moderate with some sputum production. He does not
complain of any abdominal pain, reflux, diarrhea, nausea, weakness or swelling
Past Medical History
Past Medical History: None (Hypertension. Hyperlipidemia. Obesity. Type 2 diabetes. Chewing tobacco.)
Social History
Tobacco: Non-smoker
Alcohol: None
Drug: None
Personal:
Living: With Family
Occupational Exposures: No known asbestos exposure
Environmental Exposures: No known tuberculosis exposure
Family History
Family History: Reviewed & Not Pertinent
Allergies / Home Medications
Allergies
Allergy/AdvReac Type Severity Reaction Status Date / Time
No Known Allergies Allergy Verified 07/05/24 22:59
Review of Systems
-
Unable to Obtain full review of systems at this time due to: Other (Per HPI)
Vitals / Labs / Diagnostic Testing
Vital Signs
Temp Pulse Resp BP Pulse Ox
98.8 F 77 20 109/70 92
07/06/24 04:36 07/06/24 06:00 07/06/24 06:00 07/06/24 06:00 07/06/24 06:00
Lab Data
07/06/24 04:09
Laboratory Results
07/06/24 07/06/24 07/06/24
00:48 05:51 06:30
APTT > 200.0 H* 61.2 H Cancelled
Diagnostic Testing:
Physical Exam
-
Exam:
Well-nourished and well-developed in no apparent distress
HEENT-atraumatic, normocephalic
Neck-supple, no JVD, no bruit
Heart-regular rate and rhythm-no murmurs, rubs or gallops
Chest-clear to auscultation, no wheezes, crackles
Back-no tenderness
Abdomen-soft, nontender, nondistended, no hepatosplenomegaly
Extremities-no cyanosis, clubbing, edema and good peripheral pulses
Integument-intact, no rashes, lesions or ecchymosis
Neurology-alert and oriented, nonfocal motor and sensory exam
Assessment
-
59-year-old male with history of hypertension, hyperlipidemia, type 2 diabetes, GERD and probable obstructive sleep apnea presented with shortness of breath and chest pain-admitted to ICU on a heparin drip for stat cardiology evaluation-rack puller
consulted for acute coronary syndrome/DKA/critical care management 07/06/2024.
Chest pain with elevated troponin and EKG changes
Cardiac catheterization 07/06/2024-pending
Bronchitis versus early pneumonia
Leukocytosis and elevated procalcitonin
Hyperglycemia
DKA with anion gap metabolic acidosis and ketones-anion gap 27
Metabolic acidosis
Conditions present prior to admission:
Hypertension.
Hyperlipidemia.
Obesity.
Type 2 diabetes.
Chewing tobacco.
Plan
Patient admitted to medical intensive care unit
Supplemental oxygen as needed
Noninvasive ventilation if needed
Nebulizers if needed-currently not bronchospastic
Aspiration precautions
Check sputum cultures
Empiric antibiotics for bronchitis versus early community-acquired pneumonia-ceftriaxone and azithromycin
Chest x-ray without obvious infiltrate-has leukocytosis, no temperature, and elevated procalcitonin-somewhat nonspecific
Monitor blood sugar
Insulin drip converted per hospitalist
Monitor anion gap
Consider diabetic nurse practitioner management
Trend troponin
Cardiac catheterization 07/06/2024
Heparin drip
DVT prophylaxis-on heparin drip
Nutrition
Early mobilization
Significant signs and symptoms of obstructive sleep apnea-snores, feels unrefreshed, has daytime somnolence-recommend outpatient sleep apnea workup-reviewed with including associations with untreated sleep apnea
Critical care statement: A total of 50 minutes of critical care time was provided for this patient today. This includes management of unstable vital signs, evaluation of the patient at bedside, reviewing the patient's pertinent medical records
including radiographs, acute coronary syndrome management, microbiology, laboratory evaluations, and discussion with primary team, consultants, pharmacy, nutrition, physical therapy, case management, charge nurse, critical care nursing, and
respiratory therapy.
Diagnostic data:
Chest x-ray 07/05/2024-NAD
Data Reviewed
-
EKG: Report reviewed by me
Radiology: Report reviewed by me
Medical Tests (Nuc Med, Echo etc): Report reviewed by me
Labs: Labs reviewed by me
Old Records: Reviewed
Critical Care Time (in minutes): 50
--- NOTE | 2024-07-06 07:54 | W.PN.HOSP.TC ---
Today's Communication/Plan
-
Follow-up chest x-ray
Echocardiogram
Hemoglobin A1c
Transition off insulin drip
Cardiology consult
Assessment / Plan
Assessment / Plan
Gen-AAOx3, NAD, obese
HEENT-NC, AT, anicteric, clear oral mm
Neck-supple
CV-reg, no M, +S1/S2
Lungs-clear B/L
Abd-soft, NT, ND
Ext-no edema
Musculoskeletal-no cyanosis, clubbing
Skin-warm and dry
Neuro-grossly non-focal
Psych-calm, cooperative
Acute NSTEMI -symptoms resolved. Currently n.p.o. awaiting cardiology input for catheterization. Denies cardiac history. Troponin peaked at 13.6, trending down now. BNP 11,400.
Echocardiogram pending. Initial EKG was normal, repeat EKG shows sinus rhythm, possible septal infarct and anterio-lateral ischemia.
High anion gap metabolic acidosis -differential diagnosis includes DKA versus other etiology. Check urinalysis. Glucoses under very good control on low-dose insulin infusion, 1 unit/h. Transition off insulin drip, I am not convinced that DKA is
the sole explanation for the acidemia. Start sodium bicarbonate infusion IV. Start Lantus 12 units daily this morning.
Subacute bronchitis versus community-acquired pneumonia -I favor the former. I see no obvious infiltrate on chest x-ray. Elevated procalcitonin noted but can be nonspecific. Currently on empiric antibiotics for CAP. Awaiting formal chest x-ray
reading and likely will discontinue antibiotics if no infiltrate noted.
DM2 without hyperglycemia -hemoglobin A1c pending. He is on oral agents alone for diabetes management. States most recent A1c was around 7%. Temporarily required insulin therapy when he was first diagnosed with diabetes more than 10 years ago.
Essential hypertension -controlled.
Hyperlipidemia -on atorvastatin 80 mg daily.
Obesity due to excess calories
Full code
updated at the bedside.
Anticipated Discharge: > 48 hours
Subjective/Interval History
-
Date of Service: July 06, 2024
Patient seen and examined. Denies any further chest pain. No shortness of breath.
Objective Data
-
Labs:
Laboratory Results
07/05/24 07/06/24 07/06/24
23:38 00:48 04:09
WBC 17.6 H 15.6 H
Hgb 16.3 15.7
Hct 48.3 45.6
Plt Count 292 264
APTT > 200.0 H*
Sodium 139 137
Potassium 4.2 4.1
Chloride 101 103
Carbon Dioxide 12 L* 12 L*
BUN 21 H 23 H
Creatinine 1.3 1.2
Glucose 158 H 142 H
Calcium 9.4 8.7
Total Bilirubin 1.6 H
AST 100 H
ALT 39
Alkaline Phosphatase 101
07/06/24 07/06/24 07/06/24
05:51 06:30 10:00
WBC
Hgb
Hct
Plt Count
APTT 61.2 H Cancelled
Sodium Pending
Potassium Pending
Chloride Pending
Carbon Dioxide Pending
BUN Pending
Creatinine Pending
Glucose Pending
Calcium Pending
Total Bilirubin
AST
ALT
Alkaline Phosphatase
07/06/24 07/06/24 07/06/24
13:00 14:00 18:00
WBC
Hgb
Hct
Plt Count
APTT Pending
Sodium Pending Pending
Potassium Pending Pending
Chloride Pending Pending
Carbon Dioxide Pending Pending
BUN Pending Pending
Creatinine Pending Pending
Glucose Pending Pending
Calcium Pending Pending
Total Bilirubin
AST
ALT
Alkaline Phosphatase
Vital Signs:
Vital Signs
Temp Pulse Resp BP Pulse Ox
98.9 F 77 20 109/70 94
07/06/24 07:54 07/06/24 06:00 07/06/24 06:00 07/06/24 06:00 07/06/24 07:54
I&O
07/05/24 07/06/24 07/07/24
06:59 06:59 06:59
Intake Total 273 / 364
Output Total 700 / 700
Balance -427 / -336
Review of Systems
-
History Source: Patient
All other systems: Reviewed and negative
--- NOTE | 2024-07-06 08:25 | CON.CAR ---
Consultation
Consultation Request
Date/Time Consultation Requested: 07/06/2024; 03:32
Date/Time Consultation Performed: 07/06/2024; 08:30
Requesting Provider: Dea Bolanos M.D.
Performing Provider: Mario Sandoval D.O.
Reason for Consultation: Acute coronary syndrome.
Medical History
-
Chief Complaint: Chest pain.
History of Present Illness:
59 y/o male with PMHx most notable for NIDDM2, HTN, HLD and GERD admitted with chest pain and worsening PHIPPS.
The patient reports one week of chest congestion/cough.
On the day prior to admission, the patient experienced 8/10 left sided chest pain without radiation, nausea/vomiting and was non-pleuritic. It decreased to a dull ache at the time of admission.
EKG showed NSR without ischemic changes. Initial troponin was 13.6. The patient was given aspirin and heparin .
CXR shows possible retrocardiac opacity and leukocytosis was present. The patient was started on ceftriaxone and azithromycin for complicated CAP. SARS-CoV-2 negative.
The patient does have a significant anion gapped metabolic acidosis (HCO3 = 12, anion gap = 26). Beta Hydroxybutyrate is elevated at 4.63. Glucose = 130-150's.
Overnight, the patient has done well and remained hemodynamically stable.
WBC has fallen from 17.6 to 15.6. Procalcitonin is elevated at 1.92.
Troponin is trending down (10.3 <-- 11.9).
Repeat EKG this morning shows new anteroseptal Q waves, a significant change from admission.
The patient is currently chest pain free.
Past Medical History
Past Medical History: HTN, Hypercholesterolemia and NIDDM
Social History
Tobacco: Other (Uses smokeless tobacco.)
Alcohol: None
Drug: None
Personal:
Living: With Family
Family History
Family History: Reviewed & Not Pertinent
Allergies / Home Medications
Allergy/AdvReac Type Severity Reaction Status Date / Time
No Known Allergies Allergy Verified 07/05/24 22:59
Review of Systems
-
History Source: Patient
Constitutional: No Symptoms and Not Done
EENT: No Symptoms
Respiratory: Cough and Trouble Breathing
Cardiac: Chest Pain
Abdomen/GI: No Symptoms
: No Symptoms
Musculoskeletal: No Symptoms
Skin: No Symptoms
Neurological: No Symptoms
Endocrine: No Symptoms
Hematologic/Lymphatic: No Symptoms
Physical Exam
Vital Signs
Temp Pulse Resp BP Pulse Ox
37.2 C 77 20 109/70 94
07/06/24 07:54 07/06/24 06:00 07/06/24 06:00 07/06/24 06:00 07/06/24 07:54
Lab Results
07/06/24 04:09
Troponin I 10.300 ng/ml H* 07/06/24 04:09
Ctl-C-Skfnbfnneyp Pept 47309 pg/ml 07/06/24 00:48
Physical Exam
General: Well Nourished, No Apparent Distress, Comfortable and Good Appetite
HEENT: Normocephalic, Moist Mucous Membranes and Atraumatic
Respiratory: Clear
Cardiac: S1/S2 and Regular Rhythm
Breast: Deferred by me
GI: Soft, Non Tender, Non Distended and Normal Bowel Sounds
Rectal: Deferred by Provider
Musculoskeletal: No Clubbing, No Cyanosis and No Edema
Skin: Warm and Dry
Neuro: AO x 3
Hematologic/Lymphatic: No Lymphadenopathy
Psych: Calm
Impression / Plan
-
Impression/Plan: 59 y/o male with HTN, HLD and NIDDM admitted with one week of cough followed by a day of chest pain, abnormal troponin and dynamic EKG changes and DKA.
#Chest pain/abnormal troponin
-Acute, new diagnosis.
-EKG now shows anteroseptal Q waves with a positive troponin.
-DDx includes NSTEMI in evolution, takotsubo, new HFrEF.
-TTE.
-Diagnostic cardiac catheterization for clarification of coronary anatomy.
-Continue heparin and aspirin.
#HTN
-Chronic, stable.
-Adjust medications as indicated.
#HLD
-Chronic, stable.
-Total cholesterol = 116, LDL = 48, HDL = 53, Triglycerides = 79.
-Start high dose, high potency statin (more for anti-inflammatory effect as LDL is already at goal < 55).
#Possible CAP
-Acute.
-Procalcitonin 1.92.
-Continue empiric antibiotics per internal medicine.
#NIDDM/DKA
-Acute.
-HbA1c = 8.6%.
-HCO3 = 12, anion gap = 26.
-Continue insulin gtt until gap is closed.
-DDx for DKA exacerbation is possible NSTEMI vs. infection.
Data Reviewed
-
EKG: Tracing Personally Visualized and interpreted, Report Reviewed by me and Discussed with Physician
Radiology: Image Personally Visualized and interpreted and Report Reviewed by me
Labs: Labs Reviewed by me, Discussed with Physician and Discussed with Patient
[2024-07-06 08:31] LABS: Glucose - Point of Care 120 mg/dl (70-99)
[2024-07-06 08:39] LABS: Glycohemoglobin (HgbA1c) 8.6 % (4.0-5.6)
[2024-07-06] MEDS: LOW STRENGTH ASPIRIN 81 MG PO (08:54)
[2024-07-06] MEDS: PROTONIX 40 MG PO (08:54)
[2024-07-06] MEDS: PEPCID 20 MG PO (08:54)
[2024-07-06] MEDS: SODIUM BICARBONATE 1150 MEQ IV (08:55)
[2024-07-06] MEDS: LANTUS 0.12 UNITS SC (09:08)
[2024-07-06 09:15] LABS: Glucose - Point of Care 115 mg/dl (70-99)
--- NOTE | 2024-07-06 09:56 | PTCARENOTE ---
Report given to 'Artem' in cardiac skilled laborer- notified of 1100 time to stop Insulin gtt. Pt's [id number]. Chief Wellness Officer RNs in room to transport pt. Heparin gtt turned off at 0950 by Chief Wellness Officer RN. Pt w/o changes noted or complaint received prior to
transport. Pt's to Chief Wellness Officer waiting room.
[2024-07-06 10:04] LABS: Glucose - Point of Care 117 mg/dl (70-99)
[2024-07-06 11:26] LABS: ACT-LR - POC 329 Seconds (116-155)
--- NOTE | 2024-07-06 11:26 | ITS.CL.ANGIO ---
Manager Operations - Angioplasty
Angioplasty
Procedure Report:
CARDIAC CATHETERIZATION REPORT
Date of Procedure: 07/06/2024
Referring: Axel Adkins M.D.
INDICATION: Non-ST elevation myocardial infarction.
PROCEDURE:
1. Left heart catheterization.
2. Coronary angiography.
3. Unsuccessful wiring of OM1, leading to the conclusion that this is a chronic total occlusion.
4. Successful PCI of OM 2.
ACCESS:
6 [place] right radial artery.
CATHETERS:
1. 5 [place] JR4.
2. 5 [place] JL 3.5.
3. 6 [place] EBU 3.5 guiding catheter.
HEMODYNAMIC DATA
Weight (kg): 102.1
AO (s/d/x, mmHg): 90/62/74
LV (s/x mmHg): 92/10
LEFT VENTRICULOGRAPHY: Not performed.
CORONARY ANGIOGRAPHY
Dominance: Right.
Left Main: Normal size, bifurcating vessel. There is no coronary artery disease.
LAD: Normal size vessel giving rise to 3 diagonals before wrapping around the apex and supplying the distal inferior septum. There are minor luminal irregularities in the mid vessel with a 40% lesion in the distal LAD.
Ramus: Congenitally absent.
Circumflex: Large size, nondominant vessel giving rise to 3 obtuse marginals. OM1 is a medium size vessel that is chronically totally occluded at its origin. Collaterals to OM1 are supplied by the first diagonal. There is a hazy, 80-90% lesion
in the ostium of OM 2. OM 3 arises low off of the AV groove circumflex and supplies the inferolateral base. There is no coronary artery disease.
RCA: Normal size, dominant vessel. There is a long, 40% lesion in the proximal vessel leading into the mid vessel. There are tandem 70% lesions in the distal RCA by the crux and again spanning the origin of the RPDA. A branch originates from
the origin of the right coronary artery and traverses the RVOT before giving rise to a small interventricular septal.
INTERVENTION(S)
1. Attempted but unsuccessful wiring of the first obtuse marginal out of concern that this was the culprit lesion, confirming that this is a chronic total occlusion.
2. Successful PCI of the hazy, 80-90% ostial OM2 lesion (Medtronic [place] 2.5 x 18 NORMA) with reduction in stenosis to 0%, maintaining LIDIA-3 flow.
Narrative:
The decision was made to proceed with percutaneous coronary intervention. The diagnostic catheter was removed over a wire and a 6Fr EBU 3.5 guiding catheter was advanced to the aortic root and seated in the left main coronary artery. Additional
heparin was given and a Power Turn Flex wire was advanced into the distal second obtuse marginal.
At this time, the prevailing thought was that OM1 was an acute lesion combined with OM 2 and that 2 stent strategy would be required, but hopefully not overlapping. A BMW wire was advanced into the left circumflex and into the origin of OM1, but
would not pass into the distal vessel. A quick cross microcatheter was advanced for support of the BMW, but the wire would still not cross. The BMW wire was withdrawn and a whisper wire was advanced through the quick cross microcatheter. Several
attempts were made using the quick cross microcatheter for support. The whisper wire was able to engage the lesion and passed into the occluded segment, but would not pass beyond into the distal lumen of the OM1. The angulation of OM1 was proving
quite difficult. The quick cross microcatheter was exchanged for a 45 degree super cross microcatheter. With this support, the whisper wire was able to engage more aggressively, but again would not cross into the lumen of the distal OM1. The
whisper wire was withdrawn and a Fielder XT wire was advanced. Again, the wire was able to engage the occluded segment of OM1 but would not pass into the distal lumen of OM1. After numerous attempts, we concluded that OM1 was a SUPERVISOR CUTTING DEPARTMENT and further
attempts at revascularization of this vessel were abandoned. We then turned our attention to the hazy, 80-90% ostial OM2 lesion.
The super cross microcatheter was withdrawn and the BMW wire was advanced into the circumflex and into the distal AV groove vessel for protection and assistance with stent positioning. The 80-90% ostial OM2 lesion was predilated with a 2.0 x 12
semi-compliant balloon to 12 uday. The semi-compliant balloon was removed and a Medtronic [place] 2.5 x 18 drug-eluting stent was advanced. The stent was deployed at 12 atmospheres. The stent balloon was removed. Post PCI angiography showed
mild stenosis immediately after the stent. Nitroglycerin 100 mcg was given intracoronary with resolution of the stenosis, confirming that it was post PCI vessel spasm.
Angiography was performed in orthogonal views, confirming good stent expansion and an excellent angiographic result. The coronary wire was withdrawn and the guide was disengaged from the artery. The catheter was removed over a standard J-wire.
Closure Device: Vascular band.
Radiation (mGy): 1620.84
DAP (cm2.Gy): 128.09
Fluoroscopy time (minutes): 22.6
Sedation time (minutes): 68
CONCLUSIONS
1. Right dominant circulation with a long, 40% lesion in the proximal RCA, tandem 70% lesions in the distal RCA by the crux and again spanning the origin of the RPDA, luminal irregularities in the LAD with a 40% lesion in the distal LAD, a 100%
lesion in the ostium of OM1 status post unsuccessful wiring with wire escalation, confirming chronic total occlusion and a culprit, hazy, 80-90% lesion in the ostium of OM 2, status post successful PCI (Medtronic [place] 2.5 x 18 NORMA) with
reduction in stenosis to 0%, maintaining LIDIA-3 flow.
2. Normal filling pressures (LVEDP = 10 mmHg at 102.1 kg).
RECOMMENDATIONS:
1. Expectant management after cardiac catheterization via right radial approach.
2. Limited weight bearing on the right wrist for one week.
3. Dual antiplatelet therapy with aspirin and ticagrelor for at least 12 months, followed by aspirin indefinitely.
4. Aggressive secondary prevention with high-dose, high potency statin.
5. Echocardiogram ordered and pending.
6. Guideline directed medical therapy as hemodynamics will tolerate.
7. Referral to cardiac rehab.
8. Consider outpatient exercise stress test given residual 70% lesions in right coronary artery.
Copy to: Vazquez Goodwin M.D., Axel Adkins M.D.
Mario Sandoval DO, FACC, FACP
--- NOTE | 2024-07-06 12:00 | CM ---
Patient admitted with NSTEMI and DKA. Patient in procedure. MEt with . 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 They live in 2 level home with 2 steps to enter. There is half bath on key entry operator. UP 13 steps to full bathroom
and bedrooms.
HE does not have any DME. NO history of VNA or SNF.
states her mother may have DME to borrow if needed for patient.
PCP Vazquez Goodwin
Pharmacy: [facility]
CM received consults for ADvanced directive and Cost of Brilanta 90 mg BID. CM to complete today.
PLAN:HOme with family.
[2024-07-06 12:04] LABS: Glucose - Point of Care 138 mg/dl (70-99)
--- NOTE | 2024-07-06 12:15 | PTCARENOTE ---
Pt returned to room from Expeller Worker @ 1150, awake and denying c/o pain or SOB. Pt on RA w/ POx 93-95%. Rt radial TR band in place w/ air in place, site w/o evidence of oozing or ecchymosis. BMP obtained and sent to lab. IVF of D5W w/ HCO3 infusing at
100ml/hr. Education provided to pt and his . Call nyla w/in pt reach.
[2024-07-06 13:20] LABS: Blood Urea Nitrogen 26 mg/dl (9-20); Calcium 8.5 mg/dl (8.4-10.2); Carbon Dioxide 17 mmol/L (22-30); Chloride 101 mmol/L (98-107); Estimated Creatinine Clearance 83 ml/min; Potassium 3.8 mmol/L (3.5-5.1); Sodium 134 mmol/L (135-145); eGFR > 60.00
[2024-07-06 14:00] LABS: Urine Albumin Trace (Neg - Trace); Urine Bilirubin Negative (Negative); Urine Character Clear (Clear); Urine Color Yellow; Urine Glucose 3+ (Negative); Urine Ketone 3+ (Negative); Urine Leukocyte Negative (Negative); Urine Nitrite Negative (Negative); Urine Occult Blood 1+ (Negative); Urine Urobilinogen Negative (Neg - 1+)
[2024-07-06 14:01] LABS: Glucose 123 mg/dl (70-99)
[2024-07-06 14:15] LABS: Urine White Cell 0-2 /HPF (0-5)
[2024-07-06 14:25] LABS: Glucose - Point of Care 130 mg/dl (70-99)
[2024-07-06] MEDS: NOVOLOG FLEXPEN 4 UNITS SC ×2 (14:52→17:04)
[2024-07-06 15:00] LABS: ACT-LR - POC > 397 Seconds (116-155)
--- NOTE | 2024-07-06 16:00 | PTCARENOTE ---
Pt resting quietly. Denies c/o pain or SOB. Remains on RA w/ Pox 92-95%. TR band completely deflated at 1425. Site unchanged. No changes from previous physical assessment findings. remains at bedside.
[2024-07-06] MEDS: SODIUM BICARBONATE 1300 MG PO ×2 (16:39→22:05)
[2024-07-06] MEDS: NOVOLOG FLEXPEN-LOW RESISTANCE 1 UNITS SC (17:04)
[2024-07-06 17:12] LABS: Blood Urea Nitrogen 26 mg/dl (9-20); Calcium 8.5 mg/dl (8.4-10.2); Carbon Dioxide 21 mmol/L (22-30); Chloride 100 mmol/L (98-107); Estimated Creatinine Clearance 76 ml/min; Glucose 181 mg/dl (70-99); Potassium 3.3 mmol/L (3.5-5.1); Sodium 135 mmol/L (135-145); eGFR > 60.00
[2024-07-06] MEDS: LIPITOR 80 MG PO (17:12)
[2024-07-06 17:14] LABS: Glucose - Point of Care 155 mg/dl (70-99)
--- NOTE | 2024-07-06 17:25 | PTCARENOTE ---
Pt OOB to chair, assisted w/ Hygiene. Tolerated increased activity w/o complication or complaint- remains pain free. Tolerating diet. SS Insulin coverage provided as ordered (see MAR).
[2024-07-06] MEDS: KCL 40 MEQ PO (20:33)
[2024-07-06] MEDS: BRILINTA 90 MG PO (20:33)
[2024-07-06 21:04] LABS: Magnesium 2.4 mg/dl (1.6-2.3)
--- NOTE | 2024-07-06 22:00 | PTCARENOTE ---
Patient resting comfortably in bed watching TV.
AAO, no signs of distress, answers all questions appropriately, no neurological deviations.
NSR w/o ectopy noted on bedside monitor, normotensive, normothermic.
IV fluids D/C.
All questions answered.
[2024-07-07] VITALS (15 sets, daily range): BP systolic 102–137; BP diastolic 59–88; BMI 29.1
--- NOTE | 2024-07-07 00:02 | PTCARENOTE ---
No change in Patient assessment.
Cath site remains C/D/I. Pt. sleeping.
--- NOTE | 2024-07-07 03:53 | PTCARENOTE ---
No change in patient assessment
[2024-07-07 06:24] LABS: % Basophils 0.8 % (0-2); % Eosinophils 3.6 % (0-6); % Immature Granulocytes 0.5 % (0-0.5); % Lymphocytes 25.4 % (20.5-51.1); % Monocytes 12.3 % (1.7-9.3); % Neutrophils 57.4 % (42.2-75.2); Absolute Basophils 0.1 10^3/uL (0-0.2); Absolute Eosinophils 0.4 10^3/uL (0-0.7); Absolute Immature Granulocytes 0.1 10^3/uL (0-0.05); Absolute Lymphocytes 2.5 10^3/uL (1.2-3.4); Absolute Monocytes 1.2 10^3/uL (0.1-0.6); Absolute Neutrophils 5.6 10^3/uL (1.4-6.5); Hematocrit 42.1 % (39.0-52.0); Hemoglobin 14.6 g/dL (13.0-18.0); Mean Corp Hgb Conc. 34.7 g/dL (33.0-37.0); Mean Corpuscular Hgb 28.6 pg (27.0-31.0); Mean Corpuscular Volume 82.5 fL (80.0-94.0); Mean Platelet Volume 9.9 fL (7.4-10.4); Nucleated Red Blood Cells % 0 % (-); Platelet Count 248 10^3/uL (130-400); Red Cell Dist. Width 13.2 % (11.5-14.5); White Blood Cell Count 9.8 10^3/uL (4.8-10.8)
--- NOTE | 2024-07-07 06:42 | PTCARENOTE ---
critical EKG results tiger texted to Dr. Sandoval.
No new orders placed.
[2024-07-07 06:49] LABS: Blood Urea Nitrogen 28 mg/dl (9-20); Calcium 8.5 mg/dl (8.4-10.2); Carbon Dioxide 23 mmol/L (22-30); Chloride 103 mmol/L (98-107); Estimated Creatinine Clearance 83 ml/min; Glucose 134 mg/dl (70-99); Potassium 3.7 mmol/L (3.5-5.1); Sodium 138 mmol/L (135-145); eGFR > 60.00
--- NOTE | 2024-07-07 07:36 | W.PN.INTV ---
Today's Communication / Plan
Recommendations
Wean oxygen
Antibiotics
Insulin as needed
Transfer out of ICU-call pulmonary if respiratory issues arise
Assessment
-
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
consulted for acute coronary syndrome/DKA/critical care management 07/06/2024.
Chest pain with elevated troponin and EKG changes
Cardiac catheterization 07/06/2024-pending
Bronchitis versus early pneumonia
Leukocytosis and elevated procalcitonin
Hyperglycemia
DKA with anion gap metabolic acidosis and ketones-anion gap 27
Metabolic acidosis
Conditions present prior to admission:
Hypertension.
Hyperlipidemia.
Obesity.
Type 2 diabetes.
Chewing tobacco.
Plan
Hemodynamics and cardiac status has stabilized
Supplemental oxygen as needed-attempt to wean to room air
Nebulizers as needed-some rhonchi
Aspiration precautions per protocol
Incentive spirometry
Check sputum cultures-unable to produce
Empiric antibiotics for bronchitis versus early community-acquired pneumonia-ceftriaxone and azithromycin-finite course
Chest x-ray without obvious infiltrate-has leukocytosis, no temperature, and elevated procalcitonin-somewhat nonspecific
Monitor blood sugar
Insulin supplementation as needed
Follow anion gap
Troponin trended
Cardiac catheterization 07/06/2024-status post stents
Heparin drip discontinued
Metoprolol initiated
Dual antiplatelet therapy with aspirin and ticagrelor for at least 12 months followed by aspirin 81 mg daily indefinitely
Atorvastatin 80 mg daily
Monitor QT prolongation
Consider changing azithromycin to doxycycline
DVT prophylaxis-on heparin drip
Nutrition
Early mobilization
Patient stable for transfer out of ICU-call pulmonary if respiratory issues arise
Significant signs and symptoms of obstructive sleep apnea-snores, feels unrefreshed, has daytime somnolence-recommend outpatient sleep apnea workup-reviewed with including associations with untreated sleep apnea
Reviewed the patient's pertinent medical records including radiographs, acute coronary syndrome management, microbiology, laboratory evaluations, and discussion with primary team, consultants, pharmacy, nutrition, charge nurse, critical care
nursing, and respiratory therapy.
Diagnostic data:
Chest x-ray 07/05/2024-NAD
Subjective Dataa
Subjective Data
Date of Service:
Date of Service: July 07, 2024
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
Subjective:
Feels 'great', has a harsh cough, some production, mild shortness of breath, occasional wheeze, no chest pain, pleurisy, abdominal pain, nausea, or leg swelling
Review of Systems
General: Other ( per HPI)
Objective Data
Data Reviewed
Vital Signs / I&O / Oxygen:
Vital Signs
Temp Pulse Resp BP Pulse Ox
98.2 F 66 15 119/67 95
07/07/24 04:00 07/07/24 07:00 07/07/24 07:00 07/07/24 07:00 07/07/24 04:00
Intake and Output
07/06/24 07/07/24 07/08/24
06:59 06:59 06:59
Intake Total 273 / 364 1831.5 / 1831.5
Output Total 700 / 700 1925 / 1925
Balance -427 / -336 -93.5 / -93.5
SaO2 95
Physical Exam
General: Respiratory Distress (n) and Comfortable
HEENT: Normocephalic, Anicteric and Moist Mucous Membranes
Cardiovascular: Regular Rhythm
Respiratory: Wheeze (n), Crackles (n), Rhonchi (Expiratory), Non-Labored Respirations, Accessory Resp Muscle Use (n) and Stridor
GI: Soft, Non Distended and Non Tender
Neurology: Awake, Alert and No Motor Deficits
Skin: Warm, Good Color, Cyanosis (n), Jaundice (n) and Rash (n)
Labs/Micro/Reports
Lab Data
07/07/24 05:50
07/07/24 05:50
Laboratory Results
07/06/24
13:00
APTT Cancelled
--- NOTE | 2024-07-07 07:41 | W.PN.CD ---
Today's Communication / Plan
-
Check PO4.
Monitor QTc (q4 hour EKGs).
Restart home diabetic medications - do NOT restart empagliflozin (or dapagliflozin) as this could contribute to his DKA (especially with lower glucose levels).
Do not restart psych meds.
Start metoprolol succinate 25 mg daily.
If QTc normalizes or improves with beta mely on serial EKGs, we can consider d/c.
He may need to be monitored overnight, but let's watch the EKG's first.
Impression / Plan
-
Impression/Plan: 59 y/o male with HTN, HLD and NIDDM admitted with one week of cough followed by a day of chest pain, abnormal troponin and dynamic EKG changes and DKA.
#NSTEMI
-Acute.
-Cath shows long 40% mRCA lesion, tandem 70% dRCA lesions (small RCA), luminal irregularities of the LAD, a BLOOD BANK SUPERVISOR of the ostial OM1 and an 80-90% culprit lesion in the ostium/proximal margin of OM2, s/p successful PCI (Medtronic Yuri [place] 2.5 x
18 NORMA).
-DAPT with aspirin and ticagrelor for at leas 12 months, followed by aspirin 81 mg daily indefinitely.
-TTE shows normal LV function without regional wall motion abnormality.
-Aggressive secondary prevention with atorvastatin 80 mg daily.
-Start metoprolol succinate 25 mg daily.
#Prolonged QTc
-New diagnosis.
-QTc has lengthened with admission, now 563 ms.
-The patient is on several QT prolonging medications (aripiprazole, escitalopram, buproprion) but he is not receiving them in the hospital.
-Anion gap is closed.
-Ca/K/Mg are normal.
-Check PO4.
-I suspect QTc prolongation may be due to azithromycin. No evidence of active infection. Hold azithromycin and monitor QTc.
-Start metoprolol 25 mg daily for QTc and for NSTEMI.
-Hold psych meds which may prolong QTc.
#HTN
-Chronic, stable.
-Adjust medications as indicated.
#HLD
-Chronic, stable.
-Total cholesterol = 116, LDL = 48, HDL = 53, Triglycerides = 79.
-Start high dose, high potency statin (more for anti-inflammatory effect as LDL is already at goal < 55).
#Possible CAP
-Acute.
-Procalcitonin 1.92.
-Continue ceftriaxone.
-D/C azithromycin due to possible QTc prolongation.
#NIDDM/DKA
-Acute.
-HbA1c = 8.6%.
-Gap closed. Glucose was never very high - possibly due to SGLT2i?
-Transition to home diabetic medications.
-Do NOT restart empagliflozin.
-He would benefit from GLP-1 analogs (CV disease + DM) as an outpatient.
#Dispo
-CVICU status.
-Full code.
-Monitor EKG/QTc with addtion of beta mely.
-Discharge planning. Possible d/c today vs. tomorrow depending on QTc response.
Subjective/Interval History:
Cardiac catheterization yesterday revealed a BLOOD BANK SUPERVISOR of OM1, 80-90% ostial OM2 and tandem 70% lesions in the dRCA.
Successful PCI of OM2 after extensive wiring attempts of OM1, confirming that OM1 is a BLOOD BANK SUPERVISOR and not the culprit lesion.
No chest pain overnight.
EKG shows non-specific ST-T wave changes and a prolonged QTc.
DATA:
Cardiac Catheterization/PCI, 07/06/2024:
CONCLUSIONS
1. Right dominant circulation with a long, 40% lesion in the proximal RCA, tandem 70% lesions in the distal RCA by the crux and again spanning the origin of the RPDA, luminal irregularities in the LAD with a 40% lesion in the distal LAD, a 100%
lesion in the ostium of OM1 status post unsuccessful wiring with wire escalation, confirming chronic total occlusion and a culprit, hazy, 80-90% lesion in the ostium of OM 2, status post successful PCI (Medtronic [facility] [place] 2.5 x 18 NORMA) with
reduction in stenosis to 0%, maintaining LIDIA-3 flow.
2. Normal filling pressures (LVEDP = 10 mmHg at 102.1 kg).
Echocardiogram, 07/06/2024:
CONCLUSIONS
Normal biventricular size and systolic function without regional wall motion
abnormality. Estimated LVEF 50-55%.
Moderate concentric left ventricular hypertrophy.
No significant valve disease.
No prior study available for comparison.
Physical Exam
Vital Signs/Labs
Vital Signs
Temp Pulse Resp BP Pulse Ox
37.2 C 66 15 119/67 95
07/07/24 07:36 07/07/24 07:00 07/07/24 07:00 07/07/24 07:00 07/07/24 04:00
07/05/24 07/06/24 07/07/24
11:59 11:59 11:59
Actual Weight 102.5 kg 102.6 kg
07/07/24 05:50
07/07/24 05:50
APTT Cancelled 07/06/24 13:00
Magnesium 2.4 mg/dl (1.6-2.3) H 07/06/24 16:43
Triglycerides 79 mg/dl (10-149) 07/06/24 04:09
LDL Cholesterol, Calc 48 mg/dl 07/06/24 04:09
VLDL Cholesterol, Calc 15 mg/dl (0-30) 07/06/24 04:09
HDL Cholesterol 53 mg/dl 07/06/24 04:09
07/06/24
00:48
Jql-G-Sshduuhfosn Pept 59065
LAB Results
07/05/24 07/06/24 07/06/24
23:38 03:01 04:09
Troponin I 13.600 H* 11.900 H* 10.300 H*
07/06/24
12:00
Troponin I Cancelled
Physical Exam
Constitutional: No acute distress and Comfortable
EENT: Anicteric and Moist mucous membranes
Cardiovascular: Rhythm & rate is regular, Pedal edema is absent, JVD pressure is normal, S1S2 is normal and Murmur/rub/gallop absent
Respiratory: Respiratory effort normal, Lungs clear to auscul., Wheeze Absent, Crackles Absent and Rhonchi Absent
GI: Soft, Distention absent, Flat, Non tender and Normal bowel sounds
Neuro/Psych: AO x 3
Other: Cath Site (Right radial access site is C/D/I.)
Data Reviewed
-
Date of Service: July 07, 2024
Medical Decision Making: Reviewed Test Results, Tests Ordered, Independent Historian Assessment and Test Interpretation
EKG: Tracing Personally Visualized and interpreted and Report Reviewed by me
Echo: Report Reviewed by me
X-Ray/CT/US/MRI/NUC/PET: Image Personally Visualized and interpreted and Report Reviewed by me
Medical Tests (PFT, Pathology etc): Image Personally Visualized and interpreted and Report Reviewed by me
Labs: Labs Reviewed by me and Labs Ordered by me
Old Records: Reviewed
--- NOTE | 2024-07-07 07:46 | W.CARD.POSTP ---
Post PCI Follow Up
Procedure
Procedure/Date: 07/06/24
1. Right dominant circulation with a long, 40% lesion in the proximal RCA, tandem 70% lesions in the distal RCA by the crux and again spanning the origin of the RPDA, luminal irregularities in the LAD with a 40% lesion in the distal LAD, a 100%
lesion in the ostium of OM1 status post unsuccessful wiring with wire escalation, confirming chronic total occlusion and a culprit, hazy, 80-90% lesion in the ostium of OM 2, status post successful PCI (Medtronic Yuri [place] 2.5 x 18 NORMA) with
reduction in stenosis to 0%, maintaining LIDIA-3 flow.
2. Normal filling pressures (LVEDP = 10 mmHg at 102.1 kg).
Subjective: denies cp, sob
Site
Site: Radial: Right and No ht/bleeding, distal pulses palpable
Tele / EKG
SR LAFB, prolonged QTc, anterolateral STD
Labs
07/07/24 05:50
07/07/24 05:50
APTT Cancelled 07/06/24 13:00
Magnesium 2.4 mg/dl (1.6-2.3) H 07/06/24 16:43
Triglycerides 79 mg/dl (10-149) 07/06/24 04:09
LDL Cholesterol, Calc 48 mg/dl 07/06/24 04:09
VLDL Cholesterol, Calc 15 mg/dl (0-30) 07/06/24 04:09
HDL Cholesterol 53 mg/dl 07/06/24 04:09
07/06/24
00:48
Nvc-S-Idlfjkoswpk Pept 99812
DAPT Medication
DAPT Medication: Aspirin 81mg daily and Tricagrelor 90 mg BID
Case Management checking bosch: Yes (Brilinta is affordable for patient)
Plan
post PCI OM2, residual 70% RCA stenosis, to consider outpatient exercise stress test
He last saw Dr. Nava in 2020, he has retired, I made f/u apt with Dr. Polanco in his office 08/01 @8498
--- NOTE | 2024-07-07 08:00 | PTCARENOTE ---
recd handoff at bedside, pt sleeping. monitor stable. nothing infusing, voiding pale yellow. denies chest pain. awaiting breakfast. meds as noted. seen by Dr. Orozco.
--- NOTE | 2024-07-07 08:04 | W.PN.HOSP.TC ---
Today's Communication/Plan
-
Discharge
Assessment / Plan
Assessment / Plan
Gen-AAOx3, NAD, obese
HEENT-NC, AT, anicteric, clear oral mm
Neck-supple
CV-reg, no M, +S1/S2
Lungs-clear B/L
Abd-soft, NT, ND
Ext-no edema
Musculoskeletal-no cyanosis, clubbing
Skin-warm and dry
Neuro-grossly non-focal
Psych-calm, cooperative
Acute NSTEMI -symptoms resolved. Cardiac catheterization performed 07/06, successful PCI of OM 2. Chronic total occlusion of OM1. Now on aspirin and Brilinta.
Echocardiogram shows LV EF 50 to 55% without regional wall motion abnormality. Moderate concentric LVH. No significant valve disease.
Will need cardiac rehab on discharge. Cardiology follow-up.
DM2 with euglycemic DKA -DKA resolved. Suspect related to SGLT2 inhibitor use. Hemoglobin A1c 8.6%. Glucose 134 this morning. At home he was on metformin, glimepiride, Jardiance. Currently on basal/bolus insulin. He already has a glucometer.
States he has been compliant with his medications. On discharge can increase glimepiride to 2 mg daily, resume Jardiance. Hold metformin for 48 hours after catheterization, resume on July 09. Discussed with patient. Close
outpatient follow-up with PCP. Weight loss encouraged.
Will not discharge on insulin.
Subacute bronchitis -symptoms improving. Likely viral bronchitis. No evidence of pneumonia. Antibiotics discontinued.
Essential hypertension -controlled.
Hyperlipidemia -on atorvastatin 80 mg daily, ezetimibe 10 mg daily.
Obesity due to excess calories
Full code
Dispo -medically stable for discharge, awaiting cardiology input.
Follow-up with PCP and cardiology.
35 minutes spent in discharge process.
Anticipated Discharge: Today
Subjective/Interval History
-
Date of Service: July 07, 2024
Patient seen and examined. Denies chest pain. No complaints.
Objective Data
-
Labs:
Laboratory Results
07/06/24 07/07/24
13:00 05:50
WBC 9.8
Hgb 14.6
Hct 42.1
Plt Count 248
APTT Cancelled
Sodium 138
Potassium 3.7
Chloride 103
Carbon Dioxide 23
BUN 28 H
Creatinine 1.1
Glucose 134 H
Calcium 8.5
Vital Signs:
Vital Signs
Temp Pulse Resp BP Pulse Ox
98.9 F 66 15 119/67 95
07/07/24 07:36 07/07/24 07:00 07/07/24 07:00 07/07/24 07:00 07/07/24 04:00
I&O
07/06/24 07/07/24 07/08/24
06:59 06:59 06:59
Intake Total 273 / 364 1831.5 / 1831.5
Output Total 700 / 700 1925 / 1925
Balance -427 / -336 -93.5 / -93.5
Review of Systems
-
History Source: Patient
All other systems: Reviewed and negative
[2024-07-07 08:28] LABS: Glucose - Point of Care 136 mg/dl (70-99)
--- NOTE | 2024-07-07 08:28 | W.DS.TRANS ---
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
-
Discharge Instructions:
Discharge Diagnosis/Procedures Myocardial infarction, diabetic ketoacidosis,
angioplasty with stent obtuse marginal artery x
1
Diet Low Cholesterol,Diabetic, Carb Controlled,Low
Fat
Activity As tolerated
Driving Restrictions No driving for 24 hours
Bathing Restrictions None
Other Services Cardiac Rehab
Instructions:
Stand-Alone Forms: DC Instructions- Cath/EP Lab
Changes to Home Medications: Yes
Discharge Medications:
DC Medications w/original date entered in [employer]
amlodipine 5 mg tablet 5 mg PO DAILY Blood Pressure 07/06/24
aripiprazole 2 mg tablet 2 mg PO DAILY Mental Health/Anxiety 07/06/24
atorvastatin 80 mg tablet 80 mg PO DAILY High Cholesterol 07/06/24
bupropion HCl 300 mg 24 hr tablet, extended release 300 mg PO DAILY Mental Health/Anxiety 07/06/24
empagliflozin 25 mg tablet (Jardiance) 25 mg PO DAILY Diabetes 07/06/24
escitalopram oxalate 20 mg tablet 20 mg PO DAILY Mental Health/Anxiety 07/06/24
ezetimibe 10 mg tablet 10 mg PO DAILY High Cholesterol 07/06/24
famotidine 20 mg tablet 20 mg PO BID Gastrointestinal Issue 07/06/24
gabapentin 300 mg capsule 300 mg PO DAILY Pain 07/06/24
losartan 100 mg-hydrochlorothiazide 25 mg tablet 1 tab PO DAILY Blood Pressure 07/06/24
metformin 500 mg tablet,extended release 24 hr 1,000 mg PO BID Diabetes 07/06/24
omeprazole 40 mg capsule,delayed release 40 mg PO BID Gastrointestinal Issue 07/06/24
ticagrelor 90 mg tablet (Brilinta) 90 mg PO BID #60 tabs 07/06/24
aspirin 81 mg chewable tablet 81 mg PO DAILY #0 tabs 07/07/24
glimepiride 2 mg tablet 2 mg PO DAILY Diabetes #0 tabs 07/07/24
Home Medication Changes
Glimepiride dose increased to 2 mg daily.
Pending Results: No
[2024-07-07] MEDS: KCL 40 MEQ PO (08:42)
[2024-07-07] MEDS: BRILINTA 90 MG PO ×2 (08:42→19:20)
[2024-07-07] MEDS: PEPCID 20 MG PO (08:42)
[2024-07-07] MEDS: SODIUM BICARBONATE 1300 MG PO (08:42)
[2024-07-07] MEDS: LANTUS 0.12 UNITS SC (08:43)
[2024-07-07] MEDS: PROTONIX 40 MG PO (08:43)
[2024-07-07] MEDS: LOW STRENGTH ASPIRIN 81 MG PO (08:43)
[2024-07-07 09:02] LABS: Phosphorus 2.2 mg/dl (2.5-4.5)
[2024-07-07] MEDS: LOPRESSOR 12.5 MG PO ×2 (09:10→19:20)
[2024-07-07] MEDS: NOVOLOG FLEXPEN-LOW RESISTANCE SC ×2 (09:12→12:08)
[2024-07-07] MEDS: NOVOLOG FLEXPEN 4 UNITS SC ×3 (09:13→17:11)
--- NOTE | 2024-07-07 10:27 | CM ---
Met with patient and at bedside to discuss discharge plan
will transport home
Plan: discharge to home when medically stable; CM will continue to monitor for needs/services
[2024-07-07] MEDS: DUONEB 3 ML INH ×2 (10:32→15:34)
[2024-07-07 11:54] LABS: Glucose - Point of Care 135 mg/dl (70-99)
--- NOTE | 2024-07-07 12:30 | ECGCV ---
<Dr. Sandoval> notified of ECG critical value identified by electronic interpretation on ECG completed on <07/07/24>, at <1200>.
[2024-07-07] MEDS: TESSALON PERLES 200 MG PO ×2 (12:38→22:03)
--- NOTE | 2024-07-07 13:00 | PTCARENOTE ---
ate lunch, visiting in room with , awaiting IVU bed. phosphorus repletion hanging per order, took PO easily as ordered. washed self, gown changed, presently resting back in bed. no chest pain. given tessalon perls for cough.
[2024-07-07] MEDS: SODIUM PHOSPHATE 255 MEQ IV (13:11)
[2024-07-07] MEDS: NEUTRA-PHOS POWDER PACKET 250 MG PO ×3 (13:11→21:51)
[2024-07-07] MEDS: NOVOLOG FLEXPEN-LOW RESISTANCE 1 UNITS SC (17:11)
[2024-07-07] MEDS: LIPITOR 80 MG PO (17:11)
[2024-07-07 17:12] LABS: Glucose - Point of Care 167 mg/dl (70-99)
--- NOTE | 2024-07-07 18:30 | PTCARENOTE ---
I/O collected, repeat ECG obtained as ordered. Phos repletion finished, site capped, flushed.
--- NOTE | 2024-07-07 21:13 | PTCARENOTE ---
report received, assessments per work list. ambulating in hallway independently. reviewed plan of care. denies pain, dyspnea. call [facility] in reach
[2024-07-07 22:06] LABS: Glucose - Point of Care 143 mg/dl (70-99)
[2024-07-08 03:17] VITALS: BP 138/69
[2024-07-08 03:53] VITALS: BMI 29.3
[2024-07-08 03:58] LABS: Hematocrit 41.9 % (39.0-52.0); Hemoglobin 14.4 g/dL (13.0-18.0); Mean Corp Hgb Conc. 34.4 g/dL (33.0-37.0); Mean Corpuscular Hgb 29.4 pg (27.0-31.0); Mean Corpuscular Volume 85.7 fL (80.0-94.0); Mean Platelet Volume 9.6 fL (7.4-10.4); Platelet Count 249 10^3/uL (130-400); Red Blood Cell Count 4.89 10^6/uL (4.70-6.10); White Blood Cell Count 9.9 10^3/uL (4.8-10.8)
[2024-07-08 04:29] LABS: ALT (SGPT) 32 U/L (0-50); AST (SGOT) 32 U/L (17-59); Albumin 3.3 g/dl (3.5-5.0); Alkaline Phosphatase 75 U/L (38-126); Blood Urea Nitrogen 21 mg/dl (9-20); Calcium 8.6 mg/dl (8.4-10.2); Carbon Dioxide 21 mmol/L (22-30); Chloride 105 mmol/L (98-107); Estimated Creatinine Clearance 91 ml/min; Glucose 135 mg/dl (70-99); Magnesium 2.4 mg/dl (1.6-2.3); Phosphorus 3.7 mg/dl (2.5-4.5); Potassium 3.9 mmol/L (3.5-5.1); Sodium 139 mmol/L (135-145); Total Bilirubin 0.7 mg/dl (0.2-1.3); Total Protein 6.1 g/dl (6.3-8.2); eGFR > 60.00
--- NOTE | 2024-07-08 07:43 | W.PN.CD ---
Addendum entered and electronically signed by Mario Sandoval DO 07/08/24 08:50:
Increase metoprolol to 25 mg BID (not daily).
Original Note:
Today's Communication / Plan
-
Increase metoprolol to 25 mg daily.
Withhold psychotropic medications.
Hold SGLT2i in light of near euglycemic DKA.
Discharge.
Impression / Plan
-
Impression/Plan: 59 y/o male with HTN, HLD and NIDDM admitted with one week of cough followed by a day of chest pain, abnormal troponin and dynamic EKG changes and DKA.
#NSTEMI
-Acute.
-Cath shows long 40% mRCA lesion, tandem 70% dRCA lesions (small RCA), luminal irregularities of the LAD, a HOME APPLIANCE TECH of the ostial OM1 and an 80-90% culprit lesion in the ostium/proximal margin of OM2, s/p successful PCI ([employer] [place] Corson 2.5 x
18 NORMA).
-DAPT with aspirin and ticagrelor for at leas 12 months, followed by aspirin 81 mg daily indefinitely.
-TTE shows normal LV function without regional wall motion abnormality.
-Aggressive secondary prevention with atorvastatin 80 mg daily.
-Increase metoprolol succinate to 25 mg daily.
#Prolonged QTc
-New diagnosis.
-QTc has lengthened with admission, progressed to 563 ms.
-The patient is on several QT prolonging medications (aripiprazole, escitalopram, buproprion) but he is not receiving them in the hospital.
-Anion gap is closed.
-Ca/K/Mg are normal.
-PO4 low at 2.2, improved to 3.7.
-Hold psych meds which may prolong QTc.
-QTc is progressively improving. Maintain beta mely and monitor as an outpatient.
#HTN
-Chronic, stable.
-Adjust medications as indicated.
#HLD
-Chronic, stable.
-Total cholesterol = 116, LDL = 48, HDL = 53, Triglycerides = 79.
-Continue high dose, high potency statin (more for anti-inflammatory effect as LDL is already at goal < 55).
#NIDDM/DKA
-Acute.
-HbA1c = 8.6%.
-Gap closed. Glucose was never very high - possibly due to SGLT2i?
-Transition to home diabetic medications.
-Do NOT restart empagliflozin.
-He would benefit from GLP-1 analogs (CV disease + DM) as an outpatient.
#Dispo
-CVICU status.
-Full code.
-D/C today.
Subjective/Interval History:
No acute events.
PO4 low yesterday, corrected today.
Beta mely started.
QTc has progressively improved. EKG this morning shows QTc around 480 ms.
Remains asymptomatic.
DATA:
Cardiac Catheterization/PCI, 07/06/2024:
CONCLUSIONS
1. Right dominant circulation with a long, 40% lesion in the proximal RCA, tandem 70% lesions in the distal RCA by the crux and again spanning the origin of the RPDA, luminal irregularities in the LAD with a 40% lesion in the distal LAD, a 100%
lesion in the ostium of OM1 status post unsuccessful wiring with wire escalation, confirming chronic total occlusion and a culprit, hazy, 80-90% lesion in the ostium of OM 2, status post successful PCI ([employer]tronic [place] Corson 2.5 x 18 NORMA) with
reduction in stenosis to 0%, maintaining LIDIA-3 flow.
2. Normal filling pressures (LVEDP = 10 mmHg at 102.1 kg).
Echocardiogram, 07/06/2024:
CONCLUSIONS
Normal biventricular size and systolic function without regional wall motion
abnormality. Estimated LVEF 50-55%.
Moderate concentric left ventricular hypertrophy.
No significant valve disease.
No prior study available for comparison.
Physical Exam
Vital Signs/Labs
Vital Signs
Temp Pulse Resp BP Pulse Ox
36.9 C 61 22 138/69 95
07/08/24 03:52 07/08/24 04:00 07/08/24 03:52 07/08/24 03:17 07/08/24 03:52
07/06/24 07/07/24 07/08/24
11:59 11:59 11:59
Actual Weight 102.5 kg 102.6 kg 103.5 kg
07/08/24 03:35
07/08/24 03:35
APTT Cancelled 07/06/24 13:00
Magnesium 2.4 mg/dl (1.6-2.3) H 07/08/24 03:35
Triglycerides 79 mg/dl (10-149) 07/06/24 04:09
LDL Cholesterol, Calc 48 mg/dl 07/06/24 04:09
VLDL Cholesterol, Calc 15 mg/dl (0-30) 07/06/24 04:09
HDL Cholesterol 53 mg/dl 07/06/24 04:09
07/06/24
00:48
Jah-I-Ipsqylagxyj Pept 92431
LAB Results
07/05/24 07/06/24 07/06/24
23:38 03:01 04:09
Troponin I 13.600 H* 11.900 H* 10.300 H*
07/06/24
12:00
Troponin I Cancelled
Physical Exam
Constitutional: No acute distress and Comfortable
EENT: Anicteric and Moist mucous membranes
Cardiovascular: Rhythm & rate is regular, Pedal edema is absent, JVD pressure is normal, S1S2 is normal and Murmur/rub/gallop absent
Respiratory: Respiratory effort normal, Lungs clear to auscul., Wheeze Absent, Crackles Absent and Rhonchi Absent
GI: Soft, Distention absent, Flat, Non tender and Normal bowel sounds
Neuro/Psych: AO x 3
Other: Cath Site (Right radial access is C/D/I.)
Data Reviewed
-
Date of Service: July 08, 2024
Medical Decision Making: Reviewed Test Results, Independent Historian Assessment and Test Interpretation
EKG: Tracing Personally Visualized and interpreted and Report Reviewed by me
Echo: Tracing Personally Visualized and interpreted and Report Reviewed by me
X-Ray/CT/US/MRI/NUC/PET: Image Personally Visualized and interpreted and Report Reviewed by me
Medical Tests (PFT, Pathology etc): Image Personally Visualized and interpreted and Report Reviewed by me
Labs: Labs Reviewed by me
Old Records: Reviewed
[2024-07-08 07:55] LABS: Glucose - Point of Care 158 mg/dl (70-99)
[2024-07-08 07:57] VITALS: BP 141/82
--- NOTE | 2024-07-08 07:58 | W.PN.HOSP.TC ---
Today's Communication/Plan
-
Discharge after cardiology input
Assessment / Plan
Assessment / Plan
Gen-AAOx3, NAD, obese
HEENT-NC, AT, anicteric, clear oral mm
Neck-supple
CV-reg, no M, +S1/S2
Lungs-clear B/L
Abd-soft, NT, ND
Ext-no edema
Musculoskeletal-no cyanosis, clubbing
Skin-warm and dry
Neuro-grossly non-focal
Psych-calm, cooperative
Acute NSTEMI -symptoms resolved. Cardiac catheterization performed 07/06, successful PCI of OM 2. Chronic total occlusion of OM1. Now on aspirin and Brilinta.
Echocardiogram shows LV EF 50 to 55% without regional wall motion abnormality. Moderate concentric LVH. No significant valve disease.
Will need cardiac rehab on discharge. Cardiology follow-up.
DM2 with euglycemic DKA -DKA resolved. Suspect related to SGLT2 inhibitor use in the setting of myocardial infarction induced DKA. Hemoglobin A1c 8.6%. Glucose 135 this morning. At home he was on metformin, glimepiride, Jardiance. Currently on
basal/bolus insulin. Plan to discharge on insulin therapy and hold all oral agents until he sees his primary care doctor next week. He does have experience using insulin, was previously on it. Consult diabetes education to reinforce insulin
administration. He already has a glucometer. Plan of care discussed with patient and in detail.
QT interval prolongation -possibly related to azithromycin. Received 1 dose shortly after midnight on July 06. Overall QT interval improving. Cardiology to increase dose of beta-mely.
Subacute bronchitis -symptoms improving. Likely viral bronchitis. No evidence of pneumonia. Antibiotics discontinued.
Essential hypertension -controlled.
Hyperlipidemia -on atorvastatin 80 mg daily, ezetimibe 10 mg daily.
Obesity due to excess calories
Full code
Dispo -medically stable for discharge, awaiting cardiology input.
Follow-up with PCP and cardiology.
updated at the bedside.
35 minutes spent in discharge process.
Anticipated Discharge: Today
Subjective/Interval History
-
Date of Service: July 08, 2024
Patient seen and examined. No complaints. at the bedside.
Objective Data
-
Labs:
Laboratory Results
07/08/24
03:35
WBC 9.9
Hgb 14.4
Hct 41.9
Plt Count 249
Sodium 139
Potassium 3.9
Chloride 105
Carbon Dioxide 21 L
BUN 21 H
Creatinine 1.0
Glucose 135 H
Calcium 8.6
Total Bilirubin 0.7
AST 32
ALT 32
Alkaline Phosphatase 75
Vital Signs:
Vital Signs
Temp Pulse Resp BP Pulse Ox
97.9 F 61 22 138/69 95
07/08/24 07:58 07/08/24 04:00 07/08/24 03:52 07/08/24 03:17 07/08/24 03:52
I&O
07/07/24 07/08/24 07/09/24
06:59 06:59 06:59
Intake Total 1831.5 / 1831.5 2650 / 2650
Output Total 1925 / 2625 1050 / 1050
Balance -93.5 / -793.5 1600 / 1600
Review of Systems
-
History Source: Patient
All other systems: Reviewed and negative
[2024-07-08] MEDS: PEPCID 20 MG PO (08:19)
[2024-07-08] MEDS: PROTONIX 40 MG PO (08:19)
[2024-07-08] MEDS: LANTUS 0.12 UNITS SC (08:20)
[2024-07-08] MEDS: BRILINTA 90 MG PO (08:20)
[2024-07-08] MEDS: LOW STRENGTH ASPIRIN 81 MG PO (08:20)
[2024-07-08] MEDS: TESSALON PERLES 200 MG PO (08:20)
[2024-07-08] MEDS: NOVOLOG FLEXPEN 4 UNITS SC (08:21)
[2024-07-08] MEDS: NOVOLOG FLEXPEN-LOW RESISTANCE 1 UNITS SC (08:21)
[2024-07-08] MEDS: LOPRESSOR 25 MG PO (08:50)
[2024-07-08] MEDS: SODIUM BICARBONATE 1300 MG PO (08:50)
[2024-07-08] MEDS: NEUTRA-PHOS POWDER PACKET 250 MG PO (09:11)
--- NOTE | 2024-07-08 09:29 | W.DS.TRANS ---
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
-
Discharge Instructions:
Discharge Diagnosis/Procedures Myocardial infarction, diabetic ketoacidosis,
angioplasty with stent obtuse marginal artery x
1
Diet Low Cholesterol,Diabetic, Carb Controlled,Low
Fat
Activity As tolerated
Driving Restrictions No driving for 24 hours
Bathing Restrictions None
Other Services Cardiac Rehab
Instructions:
Stand-Alone Forms: DC Instructions- Cath/EP Lab
Changes to Home Medications: Yes
Discharge Medications:
DC Medications w/original date entered in [employer]
aripiprazole 2 mg tablet 2 mg PO DAILY Mental Health/Anxiety 07/06/24
atorvastatin 80 mg tablet 80 mg PO DAILY High Cholesterol 07/06/24
bupropion HCl 300 mg 24 hr tablet, extended release 300 mg PO DAILY Mental Health/Anxiety 07/06/24
ezetimibe 10 mg tablet 10 mg PO DAILY High Cholesterol 07/06/24
famotidine 20 mg tablet 20 mg PO BID Gastrointestinal Issue 07/06/24
gabapentin 300 mg capsule 300 mg PO DAILY Pain 07/06/24
losartan 100 mg-hydrochlorothiazide 25 mg tablet 1 tab PO DAILY Blood Pressure 07/06/24
omeprazole 40 mg capsule,delayed release 40 mg PO BID Gastrointestinal Issue 07/06/24
ticagrelor 90 mg tablet (Brilinta) 90 mg PO BID #60 tabs 07/06/24
aspirin 81 mg chewable tablet 81 mg PO DAILY #0 tabs 07/07/24
benzonatate 100 mg capsule 200 mg (2 x 100 mg) PO TIDPRN PRN cough #30 caps 07/08/24
blood sugar diagnostic (Accu-Chek Guide test strips) #100 ea 07/08/24
insulin aspart U-100 100 unit/mL (3 mL) subcutaneous pen (Novolog FlexPen U-100 Insulin aspart) 4 unit (0.04 mL) SC TID #15 mL 07/08/24
insulin glargine 100 unit/mL (3 mL) subcutaneous pen (Lantus Solostar U-100 Insulin) 12 unit (0.12 mL) SC DAILY #15 mL 07/08/24
lancets (Accu-Chek Softclix Lancets) #200 ea 07/08/24
metoprolol tartrate 25 mg tablet 25 mg PO BID #60 tabs 07/08/24
pen needle, diabetic 32 gauge x 5/32' (BD Ultra-Fine Diana Pen Needle) #200 ea 07/08/24
Home Medication Changes
Hold oral diabetes medications.
Pending Results: No
--- NOTE | 2024-07-08 09:51 | CM ---
CM reviewed medical records. Patient medically ready for discharge to home. No further needs noted.
PLAN: Home with family.
[2024-07-08] MEDS: LOPRESSOR PO (09:57)
--- NOTE | 2024-07-08 09:58 | PTCARENOTE ---
recd pt handoff at bedside IVU level of care. sleeping. seen by Drs. Orozco and Jaime. Diabetic ed in room earlier, awaiting dietary then discharge. Spoke with cardiac rehab who will follow up with pt at home. VS stable. Ate. Ambulating. R
radial site intact. Questions answered, family bedside.
--- NOTE | 2024-07-08 10:45 | PN.DE ---
Diabetes Education
- -
07/08/2024: Diabetes Education Consult
59 year old male with PMH that includes T2DM, A1C 8.3% admitted with OR and DKA. Was taking Metformin, Jardiance and glimepiride prior to admission.
Plan is to discharge pt home on Insulin and diabetes education has been requested for insulin instructions.
Met with Marcos and his - Thomas at bedside.
Pt states he has a working meter and has been monitoring his sugars BID. Pt's had a lot of questions re: normal glucose range and action to take for hypoglycemic event. Discussed action of both rapid acting and long acting insulin as well as
symptoms and treatment of hypoglycemia, as he will be discharged home on both short acting and long acting insulin.
Instructions on set up of insulin pen given with good return demonstration. Reviewed technique to prime needle, reset to zero and then dial prescribed dose. Marcos is aware to check blood sugar before meals and inject rapid acting insulin in abdomen
and eat in 10-20 minutes and Long acting insulin in outer thigh, rotating sites.
Instructed pt to store insulin pens that are not in use in the refrigerator. Discussed importance of checking blood sugar 4x/day to assess food/medication effect on his BS and to know the effect of the basal insulin on his blood sugars overnight, Pt
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
Instructed pt to take long acting insulin in the morning before he goes to bed, pt verbalized understanding.
Provided information and handout on outpatient education classes, pt states he will register for October class and requested if can attend class with him.
Pt will need RX at discharge for preferred short and long acting insulins as well as insulin BD Diana pen needles.
Updates given to pt's Nurse- Rachelle at bedside.
[2024-07-08 11:05] VITALS: BP 132/90
[2024-07-08 11:06] VITALS: BP 132/90
--- NOTE | 2024-07-08 12:08 | PTCARENOTE ---
discharge instructions reviewed. seen by dietary prior to dc. IV sites removed, tele pack. questions answered. taken by WC to waiting vehicle. all paperwork given in hand.
== END 2024-07-08 12:00 | disposition home or self-care (01) | DRG 321 ==
LOC: ICU 03:30
PROVIDERS: Nurse Practitioner Family; Nurse Practitioner Primary Care; ADMITTING PHYSICIAN Internal Medicine; ATTENDING PHYSICIAN Hospitalist; CONSULT PHYSICIAN Internal Medicine Critical Care Medicine; EMERGENCY PHYSICIAN Student in an Organized Health Care Education/Training Program; FAMILY PHYSICIAN Internal Medicine; OTHER PHYSICIAN Internal Medicine Cardiovascular Disease
PROC: 02JA3ZZ Inspection of Heart, Percutaneous Approach (ICD-10-PCS; 2024-07-06)
PROC: 027034Z Dilation of Coronary Artery, One Artery with Drug-eluting Intraluminal Device, Percutaneous Approach (ICD-10-PCS; 2024-07-06)
PROC: B211YZZ Fluoroscopy of Multiple Coronary Arteries using Other Contrast (ICD-10-PCS; 2024-07-06)
PROC: 4A023N7 Measurement of Cardiac Sampling and Pressure, Left Heart, Percutaneous Approach (ICD-10-PCS; 2024-07-06)
DX: I21.4 Non-ST elevation (NSTEMI) myocardial infarction (principal); E11.10 Type 2 diabetes mellitus with ketoacidosis without coma; I45.81 Long QT syndrome; I25.10 Atherosclerotic heart disease of native coronary artery without angina pectoris; E78.00 Pure hypercholesterolemia, unspecified; I10 Essential (primary) hypertension; J20.9 Acute bronchitis, unspecified; K21.9 Gastro-esophageal reflux disease without esophagitis; G47.33 Obstructive sleep apnea (adult) (pediatric); R09.02 Hypoxemia; E66.09 Other obesity due to excess calories; Z68.29 Body mass index [BMI] 29.0-29.9, adult; Z11.52 Encounter for screening for COVID-19; Z79.899 Other long term (current) drug therapy; Z72.0 Tobacco use; Z82.49 Family history of ischemic heart disease and other diseases of the circulatory system
CPT/HCPCS: 71046; 80048; 80053; 80061; 81003; 81015; 82010; 82805; 82962; 83036; 83605; 83735; 83880; 84100; 84145; 84484; 85025; 85027; 85347; 85730; 87811; 93005; 93306; 93458; 94640; 99285; 99406; C1725; C1769; C1874; C1894; C9600; Q9967

== ENCOUNTER → 2024-07-22 07:20 | Outpatient (REF) | payer OTHER, SELFPAY | LOC: DHCBC/DCA 07:20 | PROVIDERS: ATTENDING PHYSICIAN Internal Medicine Cardiovascular Disease; FAMILY PHYSICIAN Internal Medicine | DX: I25.10 Atherosclerotic heart disease of native coronary artery without angina pectoris (principal) | CPT/HCPCS: 78452; 93017; A9500; J2785 ==

== ENCOUNTER 2024-08-17 09:47 | Outpatient (RCR) | payer OTHER, SELFPAY ==
[2024-08-08 15:04] LABS: Glucose - Point of Care 120 mg/dl (70-99)
[2024-08-08 15:54] LABS: Glucose - Point of Care 178 mg/dl (70-99)
[2024-08-10 09:20] LABS: Glucose - Point of Care 206 mg/dl (70-99)
[2024-08-10 10:10] LABS: Glucose - Point of Care 129 mg/dl (70-99)
[2024-08-12 09:20] LABS: Glucose - Point of Care 150 mg/dl (70-99)
[2024-08-12 10:14] LABS: Glucose - Point of Care 140 mg/dl (70-99)
== END 2024-08-17 23:59 | disposition home or self-care (01) ==
LOC: CRHB 09:47
PROVIDERS: Internal Medicine Cardiovascular Disease; ATTENDING PHYSICIAN Internal Medicine
DX: I25.10 Atherosclerotic heart disease of native coronary artery without angina pectoris (principal); Z95.5 Presence of coronary angioplasty implant and graft; I25.2 Old myocardial infarction
CPT/HCPCS: 82962; G0422; G0423

== ENCOUNTER 2024-09-14 09:38 | Outpatient (RCR) | payer OTHER, SELFPAY ==
[2024-08-19 09:27] LABS: Glucose - Point of Care 143 mg/dl (70-99)
[2024-08-19 10:33] LABS: Glucose - Point of Care 108 mg/dl (70-99)
[2024-08-22 09:17] LABS: Glucose - Point of Care 192 mg/dl (70-99)
[2024-08-22 10:24] LABS: Glucose - Point of Care 107 mg/dl (70-99)
[2024-08-24 09:21] LABS: Glucose - Point of Care 148 mg/dl (70-99)
[2024-08-24 10:20] LABS: Glucose - Point of Care 98 mg/dl (70-99)
== END 2024-09-14 23:59 | disposition home or self-care (01) ==
LOC: CRHB 09:38
PROVIDERS: ATTENDING PHYSICIAN Internal Medicine
DX: I25.10 Atherosclerotic heart disease of native coronary artery without angina pectoris (principal); Z95.5 Presence of coronary angioplasty implant and graft; I25.2 Old myocardial infarction
CPT/HCPCS: 82962; G0422; G0423

== ENCOUNTER 2024-10-17 10:45 | Outpatient (RCR) | payer OTHER, SELFPAY ==
[2024-10-05 10:26] LABS: Glucose - Point of Care 76 mg/dl (70-99)
[2024-10-05 10:40] LABS: Glucose - Point of Care 103 mg/dl (70-99)
== END 2024-10-17 23:59 | disposition home or self-care (01) ==
LOC: CRHB 10:45
PROVIDERS: ATTENDING PHYSICIAN Internal Medicine
DX: I25.2 Old myocardial infarction (principal); I25.10 Atherosclerotic heart disease of native coronary artery without angina pectoris; Z95.5 Presence of coronary angioplasty implant and graft
CPT/HCPCS: 82962; G0422; G0423

== ENCOUNTER 2024-11-07 10:08 | Outpatient (RCR) | payer OTHER, SELFPAY | END 2024-11-07 10:52 | disposition home or self-care (01) | LOC: CRHB 10:08 | PROVIDERS: ATTENDING PHYSICIAN Internal Medicine; FAMILY PHYSICIAN Internal Medicine | DX: I25.2 Old myocardial infarction; I25.10 Atherosclerotic heart disease of native coronary artery without angina pectoris; Z95.5 Presence of coronary angioplasty implant and graft | CPT/HCPCS: G0422; G0423 ==

== ENCOUNTER → 2025-07-19 10:33 | Outpatient (REF) | payer OTHER, SELFPAY | LOC: RCS 10:33 | PROVIDERS: ATTENDING PHYSICIAN Internal Medicine Cardiovascular Disease; FAMILY PHYSICIAN Internal Medicine | DX: I25.10 Atherosclerotic heart disease of native coronary artery without angina pectoris (principal); Z95.5 Presence of coronary angioplasty implant and graft; R60.0 Localized edema | CPT/HCPCS: 93306 ==

== ENCOUNTER → 2025-07-19 13:53 | Outpatient (REF) | payer OTHER, SELFPAY | LOC: HWRAD 13:53 | PROVIDERS: ATTENDING PHYSICIAN Internal Medicine Cardiovascular Disease; FAMILY PHYSICIAN Internal Medicine | DX: R60.0 Localized edema (principal) | CPT/HCPCS: 93970 ==